=== PATIENT | female | born 1955 | race American Indian/Alaskan Native ===

== ENCOUNTER 2017-03-29 10:43 | Emergency (ER) | payer BC, MEDICAID, OTHER ==
--- NOTE | 2017-03-29 10:46 | EDM.PDOC ---
ED HPI GENERAL MEDICAL PROBLEM - General Chief Complaint: Abdominal Pain Stated Complaint: NOT FEELIN WELL, PAIN IN STOMACH Time Seen by Provider: 03/29/17 10:46 Source of Information: Reports: Patient, Old Records, RN, RN Notes Reviewed History Limitations: Reports: No Limitations - History of Present Illness INITIAL COMMENTS - FREE TEXT/NARRATIVE: Arrives by POV with c/o upper abdominal pain on/off for 3 to 4 days, but much worse today. Yesterday pt developed nausea and by evening vomited a few times, and continues to have nausea and vomiting today. Denies fever, chills, diarrhea , or urinary Sx's. Pt states her stool has been very hard and her last normal BM was at least 4 days ago. Today she strained to have a BM and could only pass a few hard ralph. Onset: Gradual Duration: Getting Worse Location: Reports: Abdomen Quality: Reports: Ache, Other (cramping) Severity: Severe Improves with: Reports: None Worsens with: Reports: None Context: Denies: Activity, Exercise, Lifting, Sick Contact, Trauma Associated Symptoms: Reports: No Other Symptoms Right Abdominal Pain Score (Numeric/FACES): 9 - Related Data Allergies Allergy/AdvReac Type Severity Reaction Status Date / Time codeine Allergy Nausea Verified 03/29/17 10:47 Home Meds: Home Meds Propranolol [Inderal LA 24 Hr] 60 mg PO DAILY 03/17/14 [History] Simvastatin [Zocor] 20 mg PO BEDTIME 03/17/14 [History] Tylenol 650 mg PO Q4H PRN 03/17/14 [History] Past Medical History Cardiovascular History: Reports: CAD, High Cholesterol, Stents Gastrointestinal History: Reports: Cholelithiasis (constipation) Neurological History: Reports: Migraines - Past Surgical History Cardiovascular Surgical History: Reports: Coronary Artery Stent GI Surgical History: Reports: Cholecystectomy Social & Family History - Family History Family Medical History: Noncontributory - Tobacco Use Smoking Status *Q: Never Smoker Years of Tobacco use: 20 Second Hand Smoke Exposure: No - Alcohol Use Days Per Week of Alcohol Use: 0 - Recreational Drug Use Recreational Drug Use: No - Living Situation & Occupation Living situation: Reports: Occupation: Employed ED ROS GENERAL - Review of Systems Review Of Systems: ROS reveals no pertinent complaints other than HPI. ED EXAM, GI/ABD - Physical Exam Exam: See Below Exam Limited By: No Limitations General Appearance: Alert, WD/WN, No Apparent Distress Eyes: Bilateral: Normal Appearance, EOMI Throat/Mouth: Normal Inspection, Normal Lips, Normal Teeth, Normal Gums, Normal Oropharynx, Normal Voice, No Airway Compromise Head: Atraumatic Neck: Normal Inspection, Supple, Non-Tender, Full Range of Motion Respiratory/Chest: No Respiratory Distress, Lungs Clear, Normal Breath Sounds, No Accessory Muscle Use, Chest Non-Tender Cardiovascular: Normal Peripheral Pulses, Regular Rate, Rhythm, No Edema, No Gallop, No JVD, No Murmur, No Rub GI/Abdominal: Normal Bowel Sounds, Soft, No Distention, No Abnormal Bruit, Pelvis Stable, Tenderness (generalized upper abdominal tenderness, worse at RUQ) . No: Guarding, Rebound, Rigidity (Female) Exam: Deferred Rectal (Female) Exam: Deferred Back Exam: Normal Inspection, Full Range of Motion. No: CVA Tenderness (L), CVA Tenderness (R) Extremities: Normal Inspection Neurological: Alert, Oriented, CN II-XII Intact, Normal Cognition, Normal Gait, No Motor/Sensory Deficits Psychiatric: Normal Affect, Normal Mood Skin Exam: Warm, Dry, Intact, Normal Color, No Rash EKG INTERPRETATION EKG Date: 03/29/17 Time: 10:58 Rhythm: other (SR) Rate (beats/min): 82 [place]: normal P-wave: present QRS: other (LVH. Abnormal R wave progression, early transition V2.) ST-T: normal QT: normal Comparison: NA - no prior EKG Course - Vital Signs Last Recorded V/S: Last Vital Signs Temp 36.5 C 03/29/17 10:48 Pulse 82 03/29/17 11:52 Resp 18 03/29/17 11:52 BP 113/58 L 03/29/17 11:52 Pulse Ox 95 03/29/17 11:52 - Orders/Labs/Meds Orders: Active Orders 24 hr Category Date Time Status EKG 12 Lead [EKG Documentation Completion] [RC] STAT Care 03/29/17 11:06 Active Enema [RC] ASDIRECTED Care 03/29/17 11:59 Active Peripheral IV Care [RC] . DIRECTED Care 03/29/17 11:06 Active UA W/MICROSCOPIC [URIN] Stat Lab 03/29/17 11:06 Uncollected Sodium Chloride 0.9% [Saline Flush] Med 03/29/17 11:06 Active 10 ml FLUSH ASDIRECTED PRN Peripheral IV Insertion Adult [OM.PC] Stat Oth 03/29/17 11:06 Ordered Medication Orders Sodium Chloride (Saline Flush) 10 ml FLUSH ASDIRECTED PRN PRN Reason: Keep Vein Open Last Admin: 03/29/17 11:11 Dose: 10 ml Labs: Laboratory Tests 03/29/17 03/29/17 Range/Units 11:10 11:10 WBC 10.6 H (5.0-10.0) 10^3/uL RBC 5.22 (4.2-5.4) 10^6/uL Hgb 14.6 (12.0-16.0) g/dL Hct 43.5 (37.0-47.0) % MCV 83.3 (80-100) fL MCH 28.0 (27.0-34.0) pg MCHC 33.6 (33.0-35.0) g/dL Plt Count 371 (150-450) 10^3/uL Neut % (Auto) 77.4 H (42.2-75.2) % Lymph % (Auto) 16.8 L (20.5-50.1) % [place] % (Auto) 5.2 (2-8) % Eos % (Auto) 0.4 L (1.0-3.0) % Baso % (Auto) 0.2 (0.0-1.0) % Sodium 139 (135-145) mmol/L Potassium 4.0 (3.6-5.0) mmol/L Chloride 100 L (101-111) mmol/L Carbon Dioxide 26.0 (21.0-31.0) mmol/L Anion Gap 17.0 BUN 12 (7-18) mg/dL Creatinine 0.7 (0.6-1.3) mg/dL Est Cr Clr Drug Dosing 65.90 mL/min Estimated GFR (MDRD) > 60 BUN/Creatinine Ratio 17.14 Glucose 131 H (74-105) mg/dL Calcium 9.8 (8.4-10.2) mg/dl Total Bilirubin 0.8 (0.2-1.0) mg/dL AST 23 (10-42) IU/L ALT 16 (10-60) IU/L Alkaline Phosphatase 84 (42-121) IU/L Troponin I < 0.02 (0.00-0.02) ng/ml Total Protein 8.2 (6.7-8.2) g/dl Albumin 4.5 (3.2-5.5) g/dl Globulin 3.7 Albumin/Globulin Ratio 1.22 Amylase 30 (28-100) U/L Lipase 37 (22-51) U/L Meds: Medications Generic Name Dose Route Start Last Admin Trade Name Freq PRN Reason Stop Dose Admin Sodium Chloride 10 ml 03/29/17 11:06 03/29/17 11:11 Saline Flush FLUSH 10 ml ASDIRECTED PRN Administration Keep Vein Open Discontinued Medications Generic Name Dose Route Start Last Admin Trade Name Freq PRN Reason Stop Dose Admin Bisacodyl 10 mg 03/29/17 11:56 03/29/17 12:03 Dulcolax RECTAL 03/29/17 11:57 10 mg ONETIME ONE Administration Hydromorphone HCl 1 mg 03/29/17 11:06 03/29/17 11:14 Dilaudid IVPUSH 03/29/17 11:07 1 mg ONETIME ONE Administration Sodium Chloride 1,000 mls @ 999 mls/hr 03/29/17 11:06 03/29/17 11:14 Normal Saline IV 03/29/17 12:06 999 mls/hr .BOLUS ONE Administration Magnesium Citrate 296 ml 03/29/17 12:59 Citrate Of Magnesia PO 03/29/17 13:00 ONETIME ONE Ondansetron HCl 4 mg 03/29/17 11:06 03/29/17 11:14 Zofran IV 03/29/17 11:07 4 mg ONETIME ONE Administration - Radiology Interpretation Free Text/Narrative:: Abd. Xray: large stool burden, constipation. nonobstructive bowel gas pattern, see Rad. report. - Re-Assessments/Exams Free Text/Narrative Re-Assessment/Exam: 03/29/17 13:05 I explained the exam findings, results of all diagnostic tests, working diagnosis, and any potential or additionally considered diagnoses, treatment/ disposition plan, self/home care instructions, rational for the diagnosis/ treatment plan/disposition plan, anticipated course of illness, and follow up instructions to the pt and/or pts family or guardian. The pt and/or pts family or guardian acknowledges understanding of the above explanation(s), and of the signs and symptoms which should prompt the return of the pt to the ER should those or any other concerning symptoms develop. Departure - Departure Time of Disposition: 13:05 Disposition: Home, Self-Care 01 Condition: good Clinical Impression: Constipation Qualifiers: Constipation type: unspecified constipation type Qualified Code(s): K59.00 - Constipation, unspecified - Discharge Information Instructions: Constipation, Adult, [id number] Forms: ED Department Discharge Additional Instructions: Rx: Zofran 4mg Rx: Lactulose syrup Follow up in clinic if not improving in 1 to 2 days. Return to ER if worse at any time. - My Orders Last 24 Hours: My Active Orders 03/29/17 11:06 EKG 12 Lead [EKG Documentation Completion] [RC] STAT Peripheral IV Care [RC] . DIRECTED UA W/MICROSCOPIC [URIN] Stat Sodium Chloride 0.9% [Saline Flush] 10 ml FLUSH ASDIRECTED PRN Peripheral IV Insertion Adult [OM.PC] Stat 03/29/17 11:59 Enema [RC] ASDIRECTED - Assessment/Plan Last 24 Hours: My Active Orders 03/29/17 11:06 EKG 12 Lead [EKG Documentation Completion] [RC] STAT Peripheral IV Care [RC] . DIRECTED UA W/MICROSCOPIC [URIN] Stat Sodium Chloride 0.9% [Saline Flush] 10 ml FLUSH ASDIRECTED PRN Peripheral IV Insertion Adult [OM.PC] Stat 03/29/17 11:59 Enema [RC] ASDIRECTED
[2017-03-29] MEDS ORDERED: Sodium Chloride 0.9% 1,000 ML IV ONE (11:06)
[2017-03-29] MEDS ORDERED: Sodium Chloride 0.9% 10 ML Syringe FLUSH PRN (11:06)
[2017-03-29] MEDS ORDERED: HYDROmorphone 1 MG/ML Syringe IVPUSH ONE (11:06)
[2017-03-29] MEDS ORDERED: Ondansetron 4 MG/2 ML SDV IV ONE (11:06)
[2017-03-29 11:42] LABS: CHLORIDE,CL 100 mmol/L (101-111); SODIUM,NA 139 mmol/L (135-145)
--- NOTE | 2017-03-29 11:50 | CR ---
CLINICAL HISTORY: 61-year-old female with upper abdominal pain, vomiting and constipation. INTERPRETATION: Flat and upright of the abdomen confirms large volume of stool in the ascending righ t colon (rectum, sigmoid, and left colon clear). Small mass with mottled calcification right pelvis that probably represents uterine fibroid (teratom a a differential consideration). Surgical clips gallbladder fossa right upper quadrant. No other foreign bodies and no sign of abdomi nal soft tissue mass, mechanical bowel obstruction or free subdiaphragmatic air. Lung bases clear. A rthritis lumbar spine.
[2017-03-29 11:52] VITALS: BP 113/58
[2017-03-29] MEDS ORDERED: Bisacodyl 10 MG Supp RECTAL ONE (11:56)
[2017-03-29] MEDS ORDERED: Magnesium Citrate Solution 296 ML Bottle PO ONE (12:59)
--- NOTE | 2017-03-31 06:59 | EKG ---
03/29/2017- BOGDAN ROSALES - EKG done 61-year-old female, showing sinus rhythm, heart rate of 82 beats per minute. No acute ST wave changes. Normal intervals. [facility] /[id number]
== END 2017-03-29 13:23 | disposition home or self-care (01) ==
LOC: DL.ED 10:43
DX: K59.00 Constipation, unspecified (principal); I25.10 Atherosclerotic heart disease of native coronary artery without angina pectoris; E78.00 Pure hypercholesterolemia, unspecified; G43.909 Migraine, unspecified, not intractable, without status migrainosus; Z90.49 Acquired absence of other specified parts of digestive tract; Z88.5 Allergy status to narcotic agent; Z79.899 Other long term (current) drug therapy; Z95.5 Presence of coronary angioplasty implant and graft
CPT/HCPCS: 36415; 74020; 80053; 82150; 83690; 84484; 85025; 93005; 96361; 96374; 96375; 99284; A9270; J1170; J2405; J7030; J7050

== ENCOUNTER 2017-03-30 19:44 | Emergency (ER) | payer MEDICAID ==
[2017-03-30 20:22] VITALS: BP 151/116
[2017-03-30] MEDS ORDERED: Sodium Chloride 0.9% 1,000 ML IV ONE (21:15)
[2017-03-30] MEDS ORDERED: Ondansetron 4 MG/2 ML SDV IV ONE (21:15)
--- NOTE | 2017-03-30 21:24 | EDM.PDOC ---
ED HPI GENERAL MEDICAL PROBLEM - General Chief Complaint: Abdominal Pain Stated Complaint: ABD PAIN Time Seen by Provider: 03/30/17 21:10 Source of Information: Reports: Patient History Limitations: Reports: No Limitations - History of Present Illness INITIAL COMMENTS - FREE TEXT/NARRATIVE: This 61 yo female patient reports to the ED with right upper quadrant abdominal pain radiating to her right back. The patient was seen in the ED yesterday for similar symptoms, diagnosed with constipation and placed on medications. The patient reports she has taken the medications as prescribed, but has not had a large bowel movement. Onset: Today Onset Date: 03/30/17 Onset Time: 17:00 Duration: Constant, Getting Worse Location: Reports: Abdomen (RUQ) Quality: Reports: Ache, Sharp Severity: Severe Improves with: Reports: None Worsens with: Reports: None Context: Reports: Other Associated Symptoms: Reports: No Other Symptoms Right Upper Abdomen Pain Score (Numeric/FACES): 9 - Related Data Allergies Allergy/AdvReac Type Severity Reaction Status Date / Time codeine Allergy Nausea Verified 03/30/17 20:10 Home Meds: Home Meds Propranolol [Inderal LA 24 Hr] 60 mg PO DAILY 03/17/14 [History] Simvastatin [Zocor] 20 mg PO BEDTIME 03/17/14 [History] Tylenol 650 mg PO Q4H PRN 03/17/14 [History] Past Medical History Cardiovascular History: Reports: CAD, High Cholesterol, Stents Gastrointestinal History: Reports: Cholelithiasis Neurological History: Reports: Migraines Endocrine/Metabolic History: Reports: Hyperthyroidism - Past Surgical History Cardiovascular Surgical History: Reports: Coronary Artery Stent GI Surgical History: Reports: Cholecystectomy Social & Family History - Family History Family Medical History: Noncontributory Endocrine/Metabolic: Reports: Diabetes, type II Oncologic: Reports: Other (See Below) Other Oncologic Family History: unknown - Tobacco Use Smoking Status *Q: Former Smoker Years of Tobacco use: 20 Used Tobacco, but Quit: Yes Month Tobacco Last Used: Second Hand Smoke Exposure: No - Caffeine Use Caffeine Use: Reports: Soda - Alcohol Use Days Per Week of Alcohol Use: 0 - Recreational Drug Use Recreational Drug Use: No - Living Situation & Occupation Living situation: Reports: Occupation: Employed ED ROS GENERAL - Review of Systems Review Of Systems: ROS reveals no pertinent complaints other than HPI. ED EXAM, GI/ABD - Physical Exam Exam: See Below Exam Limited By: No Limitations General Appearance: Alert, Moderate Distress, Obese Eyes: Bilateral: Normal Appearance, EOMI Ears: Normal External Exam, Normal Canal, Hearing Grossly Normal, Normal TMs Nose: Normal Inspection, Normal Mucosa, No Blood Throat/Mouth: Normal Inspection, Normal Lips, Normal Teeth, Normal Gums, Normal Oropharynx, Normal Voice, No Airway Compromise Head: Atraumatic, Normocephalic Neck: Normal Inspection, Supple, Non-Tender, Full Range of Motion Respiratory/Chest: No Respiratory Distress, Lungs Clear, Normal Breath Sounds, No Accessory Muscle Use, Chest Non-Tender Cardiovascular: Normal Peripheral Pulses, Regular Rate, Rhythm, No Edema, No Gallop, No JVD, No Rub, Systolic Murmur GI/Abdominal: Hypoactive Bowel Sounds, Tenderness (RUQ) (Female) Exam: Deferred Rectal (Female) Exam: Deferred Back Exam: Normal Inspection, Full Range of Motion, NT Neurological: Alert, Oriented, CN II-XII Intact, Normal Cognition, Normal Gait, Normal Reflexes, No Motor/Sensory Deficits Psychiatric: Normal Affect, Normal Mood Skin Exam: Warm, Dry, Intact, Normal Color, No Rash Lymphatic: No Adenopathy Course - Vital Signs Last Recorded V/S: Last Vital Signs Temp 37.2 C 03/30/17 20:14 Pulse 64 03/30/17 20:14 Resp 18 03/30/17 20:14 BP 151/116 H 03/30/17 20:14 Pulse Ox 98 03/30/17 20:14 - Orders/Labs/Meds Labs: Laboratory Tests 03/30/17 03/30/17 03/30/17 Range/Units 21:25 21:31 21:31 WBC 13.0 H (5.0-10.0) 10^3/uL RBC 4.78 (4.2-5.4) 10^6/uL Hgb 13.4 (12.0-16.0) g/dL Hct 41.3 (37.0-47.0) % MCV 86.4 (80-100) fL MCH 28.0 (27.0-34.0) pg MCHC 32.4 L (33.0-35.0) g/dL Plt Count 364 (150-450) 10^3/uL Neut % (Auto) 73.7 (42.2-75.2) % Lymph % (Auto) 19.4 L (20.5-50.1) % [place] % (Auto) 5.9 (2-8) % Eos % (Auto) 0.8 L (1.0-3.0) % Baso % (Auto) 0.2 (0.0-1.0) % Sodium 141 (135-145) mmol/L Potassium 4.0 (3.6-5.0) mmol/L Chloride 100 L (101-111) mmol/L Carbon Dioxide 34.0 H (21.0-31.0) mmol/L Anion Gap 11.0 BUN 11 (7-18) mg/dL Creatinine 0.8 (0.6-1.3) mg/dL Est Cr Clr Drug Dosing TNP Estimated GFR (MDRD) > 60 BUN/Creatinine Ratio 13.75 Glucose 105 (74-105) mg/dL Calcium 9.8 (8.4-10.2) mg/dl Total Bilirubin 0.6 (0.2-1.0) mg/dL AST 22 (10-42) IU/L ALT 16 (10-60) IU/L Alkaline Phosphatase 85 (42-121) IU/L Ammonia (11-35) umol/L Total Protein 7.7 (6.7-8.2) g/dl Albumin 4.4 (3.2-5.5) g/dl Globulin 3.3 Albumin/Globulin Ratio 1.33 Amylase 28 (28-100) U/L Lipase 37 (22-51) U/L Urine Color Yellow (YELLOW) Urine Appearance Slightly cloudy (CLEAR) Urine pH 8.0 (5.0-9.0) Ur Specific [place] 1.015 (1.005-1.030) Urine Protein Negative (NEGATIVE) Urine Glucose (UA) Negative (NEGATIVE) Urine Ketones Negative (NEGATIVE) Urine Occult Blood Negative (NEGATIVE) Urine Nitrite Negative (NEGATIVE) Urine Bilirubin Negative (NEGATIVE) Urine Urobilinogen 0.2 (0.2-1.0) mg/dL Ur Leukocyte Esterase Negative (NEGATIVE) Urine RBC 0-5 /HPF Urine WBC 0-5 (0-5/HPF) /HPF Ur Epithelial Cells Few /HPF Amorphous Sediment Few (0/HPF) /HPF Urine Bacteria Rare (0-FEW/HPF) /HPF Urine Mucus Rare /LPF 03/30/17 Range/Units 21:31 WBC (5.0-10.0) 10^3/uL RBC (4.2-5.4) 10^6/uL Hgb (12.0-16.0) g/dL Hct (37.0-47.0) % MCV (80-100) fL MCH (27.0-34.0) pg MCHC (33.0-35.0) g/dL Plt Count (150-450) 10^3/uL Neut % (Auto) (42.2-75.2) % Lymph % (Auto) (20.5-50.1) % [place] % (Auto) (2-8) % Eos % (Auto) (1.0-3.0) % Baso % (Auto) (0.0-1.0) % Sodium (135-145) mmol/L Potassium (3.6-5.0) mmol/L Chloride (101-111) mmol/L Carbon Dioxide (21.0-31.0) mmol/L Anion Gap BUN (7-18) mg/dL Creatinine (0.6-1.3) mg/dL Est Cr Clr Drug Dosing Estimated GFR (MDRD) BUN/Creatinine Ratio Glucose (74-105) mg/dL Calcium (8.4-10.2) mg/dl Total Bilirubin (0.2-1.0) mg/dL AST (10-42) IU/L ALT (10-60) IU/L Alkaline Phosphatase (42-121) IU/L Ammonia < 9 L (11-35) umol/L Total Protein (6.7-8.2) g/dl Albumin (3.2-5.5) g/dl Globulin Albumin/Globulin Ratio Amylase (28-100) U/L Lipase (22-51) U/L Urine Color (YELLOW) Urine Appearance (CLEAR) Urine pH (5.0-9.0) Ur Specific [place] (1.005-1.030) Urine Protein (NEGATIVE) Urine Glucose (UA) (NEGATIVE) Urine Ketones (NEGATIVE) Urine Occult Blood (NEGATIVE) Urine Nitrite (NEGATIVE) Urine Bilirubin (NEGATIVE) Urine Urobilinogen (0.2-1.0) mg/dL Ur Leukocyte Esterase (NEGATIVE) Urine RBC /HPF Urine WBC (0-5/HPF) /HPF Ur Epithelial Cells /HPF Amorphous Sediment (0/HPF) /HPF Urine Bacteria (0-FEW/HPF) /HPF Urine Mucus /LPF Meds: Medications Discontinued Medications Generic Name Dose Route Start Last Admin Trade Name [place] PRN Reason Stop Dose Admin Hydromorphone HCl 0.5 mg 03/30/17 21:56 03/30/17 22:45 Dilaudid IVPUSH 03/30/17 21:57 0.5 mg ONETIME ONE Administration Sodium Chloride 1,000 mls @ 999 mls/hr 03/30/17 21:15 03/30/17 21:51 Normal Saline IV 03/30/17 22:15 999 mls/hr .BOLUS ONE Administration Iopamidol 75 ml 03/30/17 22:51 [id number] (61%) IVPUSH 03/30/17 22:52 ONETIME ONE Ondansetron HCl 4 mg 03/30/17 21:15 03/30/17 21:51 Zofran IV 03/30/17 21:16 4 mg ONETIME ONE Administration Departure - Departure Time of Disposition: 00:22 Disposition: Home, Self-Care 01 Condition: fair Clinical Impression: Abdominal gas pain Abdominal pain Qualifiers: Abdominal location: right upper quadrant Qualified Code(s): R10.11 - Right upper quadrant pain - Discharge Information Instructions: Abdominal Pain, Adult, [id number] Forms: ED Department Discharge Care Plan Goals: The patient was advised of the examination, lab and CT results during the visit. The patient was encouraged to continue to take the medications as prescribed by the provider yesterday. If the patient has any additional symptoms or concerns, the patient should follow-up with her primary care facility or return to the emergency department.
[2017-03-30] MEDS ORDERED: HYDROmorphone 1 MG/ML Syringe IVPUSH ONE (21:56)
[2017-03-30 21:59] LABS: CHLORIDE,CL 100 mmol/L (101-111); SODIUM,NA 141 mmol/L (135-145)
[2017-03-30] MEDS ORDERED: Iopamidol 612 MG/ML 75 ML Bottle IVPUSH ONE (22:51)
== END 2017-03-31 00:30 | disposition home or self-care (01) ==
LOC: DL.ED 19:44
DX: R14.1 Gas pain (principal); R10.11 Right upper quadrant pain; I25.10 Atherosclerotic heart disease of native coronary artery without angina pectoris; E78.00 Pure hypercholesterolemia, unspecified; G43.909 Migraine, unspecified, not intractable, without status migrainosus; E05.90 Thyrotoxicosis, unspecified without thyrotoxic crisis or storm; Z95.5 Presence of coronary angioplasty implant and graft; Z79.899 Other long term (current) drug therapy; Z88.6 Allergy status to analgesic agent; Z90.49 Acquired absence of other specified parts of digestive tract; Z87.891 Personal history of nicotine dependence
CPT/HCPCS: 36415; 74176; 80053; 81001; 82140; 82150; 83690; 85025; 96361; 96374; 96375; 99284; J1170; J2405; J7030

== ENCOUNTER 2017-03-31 10:39 | Observation (INO) | payer MEDICAID, OTHER ==
--- NOTE | 2017-03-31 10:48 | EDM.PDOC ---
ED HPI GENERAL MEDICAL PROBLEM - General Chief Complaint: Abdominal Pain Stated Complaint: BY AMBULANCE Time Seen by Provider: 03/31/17 10:48 Source of Information: Reports: Patient, RN, RN Notes Reviewed History Limitations: Reports: No Limitations - History of Present Illness INITIAL COMMENTS - FREE TEXT/NARRATIVE: Arrives by ambulance with c/o severe RUQ abdominal pain. Pt seen here last night by Oleg VELOZ, and earlier this week by myself with the same complaint. She denies fever, chills, or urinary Sx's. She has not had a BM in approx. 5 days. C/O nausea and vomiting, and not able to keep anything down for 2 days. Duration: Recurring, Waxing/Waning Location: Reports: Abdomen Right Lower Abdomen Pain Score (Numeric/FACES): 10 - Related Data Allergies Allergy/AdvReac Type Severity Reaction Status Date / Time codeine Allergy Nausea Verified 03/31/17 10:53 Home Meds: Home Meds Propranolol [Inderal LA 24 Hr] 60 mg PO DAILY 03/17/14 [History] Simvastatin [Zocor] 20 mg PO BEDTIME 03/17/14 [History] Tylenol 650 mg PO Q4H PRN 03/17/14 [History] Past Medical History Cardiovascular History: Reports: CAD, High Cholesterol, Stents Gastrointestinal History: Reports: Cholelithiasis Neurological History: Reports: Migraines Endocrine/Metabolic History: Reports: Hyperthyroidism - Past Surgical History Cardiovascular Surgical History: Reports: Coronary Artery Stent GI Surgical History: Reports: Cholecystectomy Social & Family History - Family History Family Medical History: Noncontributory Endocrine/Metabolic: Reports: Diabetes, type II Oncologic: Reports: Other (See Below) Other Oncologic Family History: unknown - Tobacco Use Smoking Status *Q: Former Smoker Years of Tobacco use: 20 Used Tobacco, but Quit: Yes Month Tobacco Last Used: Second Hand Smoke Exposure: No - Caffeine Use Caffeine Use: Reports: Soda - Alcohol Use Days Per Week of Alcohol Use: 0 - Recreational Drug Use Recreational Drug Use: No - Living Situation & Occupation Living situation: Reports: Occupation: Employed ED ROS GENERAL - Review of Systems Review Of Systems: ROS reveals no pertinent complaints other than HPI. ED EXAM, GI/ABD - Physical Exam Exam: See Below Exam Limited By: No Limitations General Appearance: Alert, WD/WN, Anxious, Mild Distress (with RUQ abd. pain) Eyes: Bilateral: Normal Appearance, EOMI Ears: Normal External Exam Nose: Normal Inspection Throat/Mouth: Normal Inspection, Normal Lips, Normal Teeth, Normal Gums, Normal Oropharynx, Normal Voice, No Airway Compromise, Other (dry oral membranes) Head: Atraumatic, Normocephalic Neck: Normal Inspection, Supple, Non-Tender, Full Range of Motion Respiratory/Chest: No Respiratory Distress, Lungs Clear, Normal Breath Sounds, No Accessory Muscle Use, Chest Non-Tender Cardiovascular: Normal Peripheral Pulses, Regular Rate, Rhythm, No Edema, No Gallop, No JVD, No Murmur, No Rub GI/Abdominal: Soft, No Distention, No Abnormal Bruit, Hypoactive Bowel Sounds, Tenderness (RUQ). No: Guarding, Rebound, Rigidity (Female) Exam: Deferred Rectal (Female) Exam: Deferred Back Exam: Normal Inspection Extremities: Normal Inspection Neurological: Alert, Oriented, CN II-XII Intact, Normal Cognition, No Motor/ Sensory Deficits Psychiatric: Anxious Skin Exam: Warm, Dry, Intact, Normal Color, No Rash EKG INTERPRETATION EKG Date: 03/31/17 Time: 11:41 Rhythm: other (SR) Rate (beats/min): 71 [place]: normal P-wave: present QRS: other (LVH) ST-T: normal QT: normal Comparison: no change Course - Vital Signs Last Recorded V/S: Last Vital Signs Temp 36.6 C 03/31/17 10:53 Pulse 67 03/31/17 12:34 Resp 24 H 03/31/17 12:34 BP 155/66 H 03/31/17 12:34 Pulse Ox 96 03/31/17 12:34 - Orders/Labs/Meds Orders: Active Orders 24 hr Category Date Time Status EKG 12 Lead [EKG Documentation Completion] [RC] STAT Care 03/31/17 11:16 Active Peripheral IV Care [RC] . DIRECTED Care 03/31/17 11:17 Active Sodium Chloride 0.9% [Saline Flush] Med 03/31/17 11:17 Active 10 ml FLUSH ASDIRECTED PRN Peripheral IV Insertion Adult [OM.PC] Stat Oth 03/31/17 11:16 Ordered Medication Orders Sodium Chloride (Saline Flush) 10 ml FLUSH ASDIRECTED PRN PRN Reason: Keep Vein Open Last Admin: 03/31/17 11:28 Dose: 10 ml Labs: Laboratory Tests 03/31/17 03/31/17 03/31/17 Range/Units 11:19 11:25 11:25 WBC 13.8 H (5.0-10.0) 10^3/uL RBC 4.78 (4.2-5.4) 10^6/uL Hgb 13.4 (12.0-16.0) g/dL Hct 41.2 (37.0-47.0) % MCV 86.2 (80-100) fL MCH 28.0 (27.0-34.0) pg MCHC 32.5 L (33.0-35.0) g/dL Plt Count 350 (150-450) 10^3/uL Neut % (Auto) 78.1 H (42.2-75.2) % Lymph % (Auto) 16.4 L (20.5-50.1) % Snyder % (Auto) 5.1 (2-8) % Eos % (Auto) 0.3 L (1.0-3.0) % Baso % (Auto) 0.1 (0.0-1.0) % D-Dimer, Quantitative (0-400) ng/mL Sodium 143 (135-145) mmol/L Potassium 3.8 (3.6-5.0) mmol/L Chloride 103 (101-111) mmol/L Carbon Dioxide 30.0 (21.0-31.0) mmol/L Anion Gap 13.8 BUN 8 (7-18) mg/dL Creatinine 0.8 (0.6-1.3) mg/dL Est Cr Clr Drug Dosing TNP Estimated GFR (MDRD) > 60 BUN/Creatinine Ratio 10.00 Glucose 119 H (74-105) mg/dL Calcium 9.2 (8.4-10.2) mg/dl Total Bilirubin 0.6 (0.2-1.0) mg/dL AST 22 (10-42) IU/L ALT 15 (10-60) IU/L Alkaline Phosphatase 83 (42-121) IU/L Lactate Dehydrogenase 132 (91-180) IU/L Troponin I 0.02 (0.00-0.02) ng/ml C-Reactive Protein (0.0-1.3) mg/dL Total Protein 7.4 (6.7-8.2) g/dl Albumin 4.2 (3.2-5.5) g/dl Globulin 3.2 Albumin/Globulin Ratio 1.31 Amylase 28 (28-100) U/L Lipase 34 (22-51) U/L Urine Color Yellow (YELLOW) Urine Appearance Clear (CLEAR) Urine pH 8.5 (5.0-9.0) Ur Specific [place] 1.015 (1.005-1.030) Urine Protein Negative (NEGATIVE) Urine Glucose (UA) Negative (NEGATIVE) Urine Ketones Negative (NEGATIVE) Urine Occult Blood Negative (NEGATIVE) Urine Nitrite Negative (NEGATIVE) Urine Bilirubin Negative (NEGATIVE) Urine Urobilinogen 0.2 (0.2-1.0) mg/dL Ur Leukocyte Esterase Negative (NEGATIVE) Urine RBC Not seen /HPF Urine WBC Not seen (0-5/HPF) /HPF Ur Epithelial Cells Rare /HPF Urine Bacteria Not seen (0-FEW/HPF) /HPF Urine Mucus Rare /LPF 03/31/17 03/31/17 Range/Units 11:25 11:25 WBC (5.0-10.0) 10^3/uL RBC (4.2-5.4) 10^6/uL Hgb (12.0-16.0) g/dL Hct (37.0-47.0) % MCV (80-100) fL MCH (27.0-34.0) pg MCHC (33.0-35.0) g/dL Plt Count (150-450) 10^3/uL Neut % (Auto) (42.2-75.2) % Lymph % (Auto) (20.5-50.1) % Snyder % (Auto) (2-8) % Eos % (Auto) (1.0-3.0) % Baso % (Auto) (0.0-1.0) % D-Dimer, Quantitative 134 (0-400) ng/mL Sodium (135-145) mmol/L Potassium (3.6-5.0) mmol/L Chloride (101-111) mmol/L Carbon Dioxide (21.0-31.0) mmol/L Anion Gap BUN (7-18) mg/dL Creatinine (0.6-1.3) mg/dL Est Cr Clr Drug Dosing Estimated GFR (MDRD) BUN/Creatinine Ratio Glucose (74-105) mg/dL Calcium (8.4-10.2) mg/dl Total Bilirubin (0.2-1.0) mg/dL AST (10-42) IU/L ALT (10-60) IU/L Alkaline Phosphatase (42-121) IU/L Lactate Dehydrogenase (91-180) IU/L Troponin I (0.00-0.02) ng/ml C-Reactive Protein < 0.5 (0.0-1.3) mg/dL Total Protein (6.7-8.2) g/dl Albumin (3.2-5.5) g/dl Globulin Albumin/Globulin Ratio Amylase (28-100) U/L Lipase (22-51) U/L Urine Color (YELLOW) Urine Appearance (CLEAR) Urine pH (5.0-9.0) Ur Specific [place] (1.005-1.030) Urine Protein (NEGATIVE) Urine Glucose (UA) (NEGATIVE) Urine Ketones (NEGATIVE) Urine Occult Blood (NEGATIVE) Urine Nitrite (NEGATIVE) Urine Bilirubin (NEGATIVE) Urine Urobilinogen (0.2-1.0) mg/dL Ur Leukocyte Esterase (NEGATIVE) Urine RBC /HPF Urine WBC (0-5/HPF) /HPF Ur Epithelial Cells /HPF Urine Bacteria (0-FEW/HPF) /HPF Urine Mucus /LPF Meds: Medications Generic Name Dose Route Start Last Admin Trade Name Klever PRN Reason Stop Dose Admin Sodium Chloride 10 ml 03/31/17 11:17 03/31/17 11:28 Saline Flush FLUSH 10 ml ASDIRECTED PRN Administration Keep Vein Open Discontinued Medications Generic Name Dose Route Start Last Admin Trade Name Klever PRN Reason Stop Dose Admin Diphenhydramine HCl 12.5 mg 03/31/17 11:20 03/31/17 11:36 Benadryl IVPUSH 03/31/17 11:21 12.5 mg ONETIME ONE Administration Sodium Chloride 1,000 mls @ 999 mls/hr 03/31/17 11:19 03/31/17 11:36 Normal Saline IV 03/31/17 12:19 999 mls/hr .BOLUS ONE Administration Lorazepam 0.5 mg 03/31/17 11:20 03/31/17 11:36 Ativan IVPUSH 03/31/17 11:21 0.5 mg ONETIME ONE Administration Metoclopramide HCl 10 mg 03/31/17 11:20 03/31/17 11:36 Reglan IVPUSH 03/31/17 11:21 10 mg ONETIME ONE Administration - Radiology Interpretation Free Text/Narrative:: ABD. Xray: no acute finding per Rad. report. Departure - Departure Time of Disposition: 12:54 (admit to Dr. Espinoza) Disposition: Refer to Observation Condition: undetermined Clinical Impression: Abdominal pain Qualifiers: Abdominal location: right upper quadrant Qualified Code(s): R10.11 - Right upper quadrant pain Constipation Qualifiers: Constipation type: unspecified constipation type Qualified Code(s): K59.00 - Constipation, unspecified Vomiting Qualifiers: Vomiting type: unspecified Vomiting Intractability: unspecified Nausea presence : with nausea Qualified Code(s): R11.2 - Nausea with vomiting, unspecified - Discharge Information Forms: ED Department Discharge - My Orders Last 24 Hours: My Active Orders 03/31/17 11:16 EKG 12 Lead [EKG Documentation Completion] [RC] STAT Peripheral IV Insertion Adult [OM.PC] Stat 03/31/17 11:17 Peripheral IV Care [RC] . DIRECTED Sodium Chloride 0.9% [Saline Flush] 10 ml FLUSH ASDIRECTED PRN - Assessment/Plan Last 24 Hours: My Active Orders 03/31/17 11:16 EKG 12 Lead [EKG Documentation Completion] [RC] STAT Peripheral IV Insertion Adult [OM.PC] Stat 03/31/17 11:17 Peripheral IV Care [RC] . DIRECTED Sodium Chloride 0.9% [Saline Flush] 10 ml FLUSH ASDIRECTED PRN
[2017-03-31] MEDS ORDERED: Sodium Chloride 0.9% 10 ML Syringe FLUSH PRN (11:17)
[2017-03-31] MEDS ORDERED: Sodium Chloride 0.9% 1,000 ML IV ONE (11:19)
[2017-03-31] MEDS ORDERED: diphenhydrAMINE 50 MG/ML SDV IVPUSH ONE (11:20)
[2017-03-31] MEDS ORDERED: Metoclopramide 10 MG/2 ML SDV IVPUSH ONE (11:20)
[2017-03-31] MEDS ORDERED: LORazepam 2 MG/ML Syringe IVPUSH ONE (11:20)
[2017-03-31 11:53] LABS: CHLORIDE,CL 103 mmol/L (101-111); SODIUM,NA 143 mmol/L (135-145)
--- NOTE | 2017-03-31 12:23 | CR ---
CLINICAL HISTORY: 61-year-old female with right upper quadrant pain and pressure ("no bowel movement several days") noted to have "calcified uterine leiomyoma" but otherwise unremarkable study emergen cy CT scan abdomen 30 March 2017, i.e., last night. INTERPRETATION: Surgical clips gallbladder fossa right upper quadrant and large abdominal soft tissu e pannus. No sign of abdominal soft tissue mass or mechanical bowel obstruction (calcifications right of the p wing consistent with uterine myoma). Lung bases clear. No free subdiaphragmatic air.
[2017-03-31] MEDS ORDERED: Ondansetron 4 MG/2 ML SDV IV ONE (13:04)
[2017-03-31] MEDS ORDERED: HYDROmorphone 1 MG/ML Syringe IVPUSH ONE (13:04)
[2017-03-31] MEDS ORDERED: Acetaminophen 325 MG Tab PO PRN (14:26)
--- NOTE | 2017-03-31 14:54 | PCM.HP ---
H&P History of Present Illness - General Date of Service: 03/31/17 Admit Problem/Dx: Admission Diagnosis/Problem Admission Diagnosis/Problem Abdominal pain Source of Information: Patient, Family History Limitations: Reports: No Limitations - History of Present Illness Initial Comments - Free Text/Narative: patient is a 59-year-old female was admitted because of abdominal pain. Actually today it was her third visit to the emergency room because of the same complaint. patient has been having right-sided abdominal pain, occasionally radiating towards the back, she rates the pain is 9/10 in intensity. Constant. First visit emergency room around 2 days ago, x-rays showed some stools on the ascending colon, she was given enema and stool softener and family members report that there was no significant results from it. Seen again yesterday for the same problem CAT scan showed no significant findings, appendix normal, no signs of obstruction, surgical clips in the gallbladder area noted. And again, was seen by her daughter to be in pain and really weak from it, hence ambulance was called and brought to the emergency room and because of the recurrent ER visits, was advised admission. Other family members report that actually this started last . Patient has had episodes of vomiting. She denies prior episodes of this in the past. No sick contacts in the household. No chest pain, shortness of breath, fever however was noted to be cold in the emergency room. No bloody stools no new medications started. Right Lower Abdomen Pain Score (Numeric/FACES): 10 Right Upper Abdomen Pain Score (Numeric/FACES): 7 - Related Data Allergies/Adverse Reactions: Allergies Allergy/AdvReac Type Severity Reaction Status Date / Time codeine Allergy Nausea Verified 03/31/17 14:42 Home Medications: Home Meds Simvastatin [Zocor] 20 mg PO BEDTIME 03/17/14 [History] Aspirin [Ecotrin] 325 mg PO DAILY 03/31/17 [History] Famotidine 20 mg PO DAILY PRN 03/31/17 [History] Lactulose 30 ml PO DAILY PRN 03/31/17 [History] Lisinopril 1.5 tab PO DAILY 03/31/17 [History] Metoprolol Tartrate 50 mg PO DAILY 03/31/17 [History] Ondansetron [IJD: Ondansetron ODT] 4 mg PO Q6H PRN 03/31/17 [History] Simethicone [Gas Relief] 125 mg PO QID PRN 03/31/17 [History] Vit C/E/Zn/Coppr/Lutein/Zeaxan [Preservision Areds 2 Softgel] 1 cap PO BID 03/31 [History] Vitamin E 1,000 units PO BID 03/31/17 [History] diphenhydrAMINE HCl [Benadryl Allergy] 25 mg PO DAILY PRN 03/31/17 [History] Past Medical History Cardiovascular History: Reports: CAD, High Cholesterol, Stents Gastrointestinal History: Reports: Cholelithiasis Neurological History: Reports: Migraines Endocrine/Metabolic History: Reports: Hyperthyroidism - Past Surgical History Cardiovascular Surgical History: Reports: Coronary Artery Stent GI Surgical History: Reports: Cholecystectomy Social & Family History - Family History Family Medical History: Noncontributory Endocrine/Metabolic: Reports: Diabetes, type II Oncologic: Reports: Other (See Below) Other Oncologic Family History: unknown - Tobacco Use Smoking Status *Q: Never Smoker Years of Tobacco use: 20 Used Tobacco, but Quit: Yes Month Tobacco Last Used: Second Hand Smoke Exposure: No - Caffeine Use Caffeine Use: Reports: None - Alcohol Use Days Per Week of Alcohol Use: 0 - Recreational Drug Use Recreational Drug Use: No - Living Situation & Occupation Living situation: Reports: Occupation: Employed H&P Review of Systems - Review of Systems: Review Of Systems: See Below General: Reports: No Symptoms Pulmonary: Reports: No Symptoms Cardiovascular: Reports: No Symptoms Gastrointestinal: Reports: Abdominal Pain, Constipation Psychiatric: Reports: No Symptoms Neurological: Reports: No Symptoms Exam - Exam Exam: See Below - Vital Signs Vital Signs: Last Vital Signs Temp 35.9 C 03/31/17 14:12 Pulse 63 03/31/17 14:12 Resp 20 03/31/17 14:12 BP 134/61 03/31/17 14:12 Pulse Ox 93 L 03/31/17 14:12 Weight: 62.686 kg - Exam General: Alert, Oriented Lungs: Clear to Auscultation, Normal Respiratory Effort Cardiovascular: Regular Rate, Regular Rhythm Abdomen: Soft, Other (direct tenderness on the right lower and right upper with no rebound tenderness; no muscle guarding) - Patient Data Result Diagrams: 03/31/17 11:25 03/31/17 11:25 *Q Meaningful Use (ADM) - VTE *Q VTE Criteria *Q: - Stroke *Q Stroke Criteria *Q: - AMI *Q AMI Criteria *Q: - Problem List (1) Abdominal pain SNOMED Code(s): 60109543 ICD Code: R10.9 - UNSPECIFIED ABDOMINAL PAIN Status: Acute Current Visit : Yes Qualifiers: Abdominal location: right upper quadrant Qualified Code(s): R10.11 - Right upper quadrant pain (2) Vomiting SNOMED Code(s): 391642723 ICD Code: R11.10 - VOMITING, UNSPECIFIED Status: Acute Current Visit: Yes Qualifiers: Vomiting type: unspecified Vomiting Intractability: unspecified Nausea presence: with nausea Qualified Code(s): R11.2 - Nausea with vomiting, unspecified Problem List Initiated/Reviewed/Updated: Yes Orders Last 24hrs: Active Orders 24 hr Category Date Time Status Patient Status [ADT] Routine ADT 03/31/17 14:27 Active Antiembolic Devices [RC] PER UNIT ROUTINE Care 03/31/17 14:28 Active Cooling Warming Measures [RC] ASDIRECTED Care 03/31/17 14:32 Active Oxygen Therapy [RC] PRN Care 03/31/17 14:27 Active Up With Assistance [RC] ASDIRECTED Care 03/31/17 14:27 Active VTE/DVT Education [RC] PER UNIT ROUTINE Care 03/31/17 14:27 Active Vital Signs [RC] Q4H Care 03/31/17 14:27 Active Nothing per Oral Now Diet [DIET] Diet 03/31/17 Dinner Active H PYLORI STOOL ANTIGEN [MREF] Routine Lab 03/31/17 14:30 Uncollected Acetaminophen [Tylenol] Med 03/31/17 14:26 Active 650 mg PO Q4H PRN Lactulose [Cephulac] Med 03/31/17 21:00 Active 20 gm PO TID Propranolol [Inderal LA] Med 04/01/17 09:00 Active 60 mg PO DAILY Simvastatin [Zocor] Med 03/31/17 21:00 Active 20 mg PO BEDTIME Sodium Chloride 0.9% [Normal Saline] 1,000 ml Med 03/31/17 14:30 Active IV ASDIRECTED Antiembolic Hose [OM.PC] Per Unit Routine Oth 03/31/17 14:28 Ordered Heat Therapy [OM.PC] Routine Oth 03/31/17 14:32 Ordered Medication Orders Acetaminophen (Tylenol) 650 mg PO Q4H PRN PRN Reason: Pain Sodium Chloride (Normal Saline) 1,000 mls @ 125 mls/hr IV ASDIRECTED IVY Lactulose (Cephulac) 20 gm PO TID IVY Propranolol HCl (Inderal La) 60 mg PO DAILY IVY Simvastatin (Zocor) 20 mg PO BEDTIME IVY Sodium Chloride (Saline Flush) 10 ml FLUSH ASDIRECTED PRN PRN Reason: Keep Vein Open Last Admin: 03/31/17 11:28 Dose: 10 ml Assessment/Plan Comment:: abdominal pain - Unclear etiology, infectious unlikely, CAT scan not showing any focus of infection; CRP is normal; no signs of obstruction; aminotransferase is normal, lipase normal; no rash noted on the affected area as well; for now considering constipation - lactulose t.i.d., monitor for result - Heating pad to be applied to the affected area 3 times a day as well Nausea and vomiting, unclear etiology: can be associated from the underlying abdominal pain - n.p.o.; start IV fluids normal saline 125 mL per hour - Reglan IV 3 times a day - IV protonix - patient has a documented history of GERD, send stool for H. pylori History of coronary artery disease, chest pain free - EKG didn't show any acute signs and troponin is normal review of records patient has history of multinodular goiter - Check TSH DVT prophylaxis - Lovenox subcutaneously
[2017-03-31] MEDS ORDERED: Pantoprazole 40 MG Tab.CR PO ONE (15:08)
[2017-03-31] MEDS: Sodium Chloride 0.9% 1,000 ML IV SCH ×2 (15:12→23:01)
[2017-03-31] MEDS ORDERED: Ketorolac 30 MG/ML SDV IVPUSH PRN (16:42)
[2017-03-31] MEDS ORDERED: Famotidine 20 MG Tab PO PRN (17:01)
[2017-03-31] MEDS: Metoclopramide 10 MG/2 ML SDV IVPUSH SCH ×2 (17:22→23:52)
[2017-03-31] MEDS ORDERED: Simvastatin 10 MG Tab PO SCH (21:00)
[2017-03-31] MEDS: Lactulose Soln 10 GM/15 ML 30 ML UD Cup PO SCH (21:10)
[2017-03-31] MEDS: Vitamin E (dl-alpha-tocopherol acetate) 400 Unit Cap PO SCH (21:11)
[2017-03-31] MEDS: Lutein/Minerals/Vit A,C & E Tab PO SCH (21:11)
[2017-04-01] MEDS ORDERED: Pantoprazole 40 MG Tab.CR PO SCH (06:00)
[2017-04-01] MEDS: Metoclopramide 10 MG/2 ML SDV IVPUSH SCH (06:09)
[2017-04-01] MEDS: Sodium Chloride 0.9% 1,000 ML IV SCH (07:24)
[2017-04-01] MEDS ORDERED: Lisinopril 20 MG Tab PO SCH (09:00)
[2017-04-01] MEDS ORDERED: Metoprolol Tartrate 50 MG Tab PO SCH (09:00)
[2017-04-01] MEDS ORDERED: Enoxaparin 40 MG/0.4 ML Syringe SUBCUT SCH (09:00)
[2017-04-01] MEDS ORDERED: Propranolol 60 MG Cap.ER PO SCH (09:00)
[2017-04-01] MEDS ORDERED: Aspirin 325 MG Tab.EC PO SCH (09:00)
[2017-04-01] MEDS: Lactulose Soln 10 GM/15 ML 30 ML UD Cup PO SCH (09:15)
[2017-04-01] MEDS: Lutein/Minerals/Vit A,C & E Tab PO SCH (09:16)
[2017-04-01] MEDS: Vitamin E (dl-alpha-tocopherol acetate) 400 Unit Cap PO SCH (09:22)
[2017-04-01 09:40] VITALS: BP 128/58
--- NOTE | 2017-04-01 10:53 | PCM.DCSUM1 ---
Discharge Summary - Hospital Course Free Text/Narrative:: the patient is a 61-year-old lady who presented with the recurrent abdomen pain , constipation, nausea vomiting. She had multiple ER visits. previous workup including CT of the abdomen was non-revealing. On admission she was started on lactulose. She had a good bowel movement with that. The abdominal pain has resolved. She will be discharged home in a stable condition. She will followup with her primary care physician. Return to the ER for further abdomen pain. - Discharge Data Discharge Date: 04/01/17 Discharge Disposition: Home, Self-Care 01 Condition: Good - Patient Instructions Diet: Usual Diet as Tolerated Activity: As Tolerated - Discharge Plan Home Medications: Home Meds Simvastatin [Zocor] 20 mg PO BEDTIME 03/17/14 [History] Aspirin [Ecotrin] 325 mg PO DAILY 03/31/17 [History] Famotidine 20 mg PO DAILY PRN 03/31/17 [History] Lactulose 30 ml PO DAILY PRN 03/31/17 [History] Lisinopril 1.5 tab PO DAILY 03/31/17 [History] Metoprolol Tartrate 50 mg PO DAILY 03/31/17 [History] Ondansetron [IJD: Ondansetron ODT] 4 mg PO Q6H PRN 03/31/17 [History] Simethicone [Gas Relief] 125 mg PO QID PRN 03/31/17 [History] Vit C/E/Zn/Coppr/Lutein/Zeaxan [Preservision Areds 2 Softgel] 1 cap PO BID 03/31 [History] Vitamin E 1,000 units PO BID 03/31/17 [History] diphenhydrAMINE HCl [Benadryl Allergy] 25 mg PO DAILY PRN 03/31/17 [History] Patient Handouts: Nausea and Vomiting, Adult, [id number], Abdominal Pain, Adult, [id number] Referrals: PCP,None [Primary Care Provider] - (in 3-4 days) - Discharge Summary/Plan Comment DC Time >30 min.: No - General Info Functional Status: Reports: other (pain resolved, had good bowel movement) - Review of Systems General: Denies: Fever Pulmonary: Denies: shortness of breath Cardiovascular: Denies: Chest Pain Gastrointestinal: Denies: Abdominal pain, Constipation, Nausea, Vomiting Neurological: Denies: Confusion, Dizziness - Patient Data Vitals - Most Recent: Last Vital Signs Temp 36.4 C 04/01/17 07:19 Pulse 64 04/01/17 09:16 Resp 16 04/01/17 07:19 BP 128/58 L 04/01/17 09:16 Pulse Ox 96 04/01/17 07:19 Weight - Most Recent: 62.686 kg I&O - Last 24 hours: Intake & Output 03/31/17 04/01/17 04/01/17 22:59 06:59 14:59 Intake Total 968 300 995 Output Total 450 Balance 518 300 995 Lab Results - Last 24 hrs: Laboratory Results - last 24 hr 03/31/17 03/31/17 Range/Units 15:20 15:20 Lactic Acid 0.7 (0.5-2.2) mmol/L TSH, Ultra Sensitive 0.04 L (0.35-7.0) uIu/mL Med Orders - Current: Current Medications Acetaminophen (Tylenol) 650 mg PO Q4H PRN PRN Reason: Pain Aspirin (Ecotrin) 325 mg PO DAILY [facility] Last Admin: 04/01/17 09:15 Dose: 325 mg Enoxaparin Sodium (Lovenox) 40 mg SUBCUT DAILY [facility] Last Admin: 04/01/17 09:30 Dose: 40 mg Famotidine (Pepcid) 20 mg PO DAILY PRN PRN Reason: Heartburn Sodium Chloride (Normal Saline) 1,000 mls @ 125 mls/hr IV ASDIRECTED [facility] Last Admin: 04/01/17 07:24 Dose: 125 mls/hr Ketorolac Tromethamine (Toradol) 30 mg IVPUSH Q8H PRN PRN Reason: Pain Stop: 04/05/17 16:42 Last Admin: 03/31/17 20:14 Dose: 30 mg Lactulose (Cephulac) 20 gm PO TID [facility] Last Admin: 04/01/17 09:15 Dose: 20 gm Lisinopril (Prinivil) 30 mg PO DAILY [facility] Last Admin: 04/01/17 09:24 Dose: 30 mg Metoclopramide HCl (Reglan) 10 mg IVPUSH Q6H [facility] Last Admin: 04/01/17 06:09 Dose: Not Given Metoprolol Tartrate (Lopressor) 50 mg PO DAILY [facility] Last Admin: 04/01/17 09:16 Dose: 50 mg Multivitamins/Minerals (I-Shan) 1 each PO BID [facility] Last Admin: 04/01/17 09:16 Dose: 1 each Pantoprazole Sodium (Protonix) 40 mg PO ACBREAKFAST [facility] Last Admin: 04/01/17 05:48 Dose: 40 mg Simvastatin (Zocor) 20 mg PO BEDTIME [facility] Last Admin: 03/31/17 21:11 Dose: 20 mg Sodium Chloride (Saline Flush) 10 ml FLUSH ASDIRECTED PRN PRN Reason: Keep Vein Open Last Admin: 03/31/17 11:28 Dose: 10 ml Vitamin E (Vitamin E) 800 units PO BID [facility] Last Admin: 04/01/17 09:22 Dose: 800 units Discontinued Medications Diphenhydramine HCl (Benadryl) 12.5 mg IVPUSH ONETIME ONE Stop: 03/31/17 11:21 Last Admin: 03/31/17 11:36 Dose: 12.5 mg Hydromorphone HCl (Dilaudid) 1 mg IVPUSH ONETIME ONE Stop: 03/31/17 13:05 Last Admin: 03/31/17 13:19 Dose: 1 mg Sodium Chloride (Normal Saline) 1,000 mls @ 999 mls/hr IV .BOLUS ONE Stop: 03/31/17 12:19 Last Admin: 03/31/17 11:36 Dose: 999 mls/hr Lorazepam (Ativan) 0.5 mg IVPUSH ONETIME ONE Stop: 03/31/17 11:21 Last Admin: 03/31/17 11:36 Dose: 0.5 mg Metoclopramide HCl (Reglan) 10 mg IVPUSH ONETIME ONE Stop: 03/31/17 11:21 Last Admin: 03/31/17 11:36 Dose: 10 mg Ondansetron HCl (Zofran) 4 mg IV ONETIME ONE Stop: 03/31/17 13:05 Last Admin: 03/31/17 13:19 Dose: 4 mg Pantoprazole Sodium (Protonix) 40 mg PO ONETIME ONE Stop: 03/31/17 15:09 Last Admin: 03/31/17 17:20 Dose: 40 mg Propranolol HCl (Inderal La) 60 mg PO DAILY IVY - Exam General: Reports: alert, oriented Neck: Reports: supple Lungs: Reports: Clear to auscultation, Normal respiratory effort Cardiovascular: Reports: Regular Rate Abdomen: Reports: bowel sounds present, soft, no tenderness, no distension Extremities: Reports: no edema *Q Meaningful Use (DIS) - VTE *Q VTE Criteria *Q: - Stroke *Q Stroke Criteria *Q: - AMI *Q AMI Criteria *Q:
--- NOTE | 2017-05-20 11:50 | EKG ---
03/31/2017- BOGDAN ROSALES - EKG done on a 61-year-old female, showing sinus rhythm, heart rate of 71 beats per minute. Normal intervals. No acute ST wave changes. [facility] /[id number]
== END 2017-04-01 11:30 | disposition home or self-care (01) ==
LOC: DL.ED 10:39 → DL.MS 13:52
PROVIDERS: ADMIT Internal Medicine; ATTEND Internal Medicine
DX: R10.11 Right upper quadrant pain (principal); R11.2 Nausea with vomiting, unspecified; E78.00 Pure hypercholesterolemia, unspecified; I25.10 Atherosclerotic heart disease of native coronary artery without angina pectoris; E05.90 Thyrotoxicosis, unspecified without thyrotoxic crisis or storm; Z95.5 Presence of coronary angioplasty implant and graft; Z88.8 Allergy status to other drugs, medicaments and biological substances; Z79.899 Other long term (current) drug therapy; Z90.49 Acquired absence of other specified parts of digestive tract; Z87.891 Personal history of nicotine dependence; Z79.82 Long term (current) use of aspirin; R14.1 Gas pain; G43.909 Migraine, unspecified, not intractable, without status migrainosus; Z88.6 Allergy status to analgesic agent
CPT/HCPCS: 36415; 74020; 74176; 80053; 81001; 82140; 82150; 83605; 83615; 83690; 84439; 84443; 84481; 84484; 85025; 85379; 86140; 87338; 93005; 96361; 96372; 96374; 96375; 96376; 99284; 99285; A9270; G0378; J1170; J1200; J1650; J1885; J2060; J2405; J2765; J7030; J7050

== ENCOUNTER 2017-05-27 05:25 | Day surgery (SDC) | payer MEDICAID, OTHER ==
[~2017-05-27 05:25] MED LIST: Dextrose 5%-0.45% NaCl 1,000 ML IV SCH; Sodium Chloride 0.9% 10 ML Syringe FLUSH PRN
[2017-05-27] MEDS ORDERED: fentaNYL 100 MCG/2 ML SDV ONE (06:08)
[2017-05-27] MEDS ORDERED: Midazolam 1 MG/ML 2 ML SDV ONE (06:08)
[2017-05-27] MEDS ORDERED: Dextrose 5%-0.45% NaCl 1,000 ML IV SCH (06:15)
[2017-05-27] MEDS ORDERED: fentaNYL 100 MCG/2 ML SDV IV ONE ×3 (06:26→16:19)
[2017-05-27] MEDS ORDERED: Midazolam 1 MG/ML 2 ML SDV IV ONE ×4 (06:27→16:19)
[2017-05-27 08:42] VITALS: BP 103/59
--- NOTE | 2017-05-27 11:07 | OR ---
DATE: 05/27/2017 PROCEDURE: Esophagogastroduodenoscopy and multiple pinch biopsies. INSTRUMENT USED: GIF-H180 Olympus video panendoscope. PREMEDICATIONS: No oral topical anesthesia used. Fentanyl 100 mcg intravenous, Versed 2 mg intravenous. Nasal 2 L O2 cannula. 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 INDICATION: The patient with persistent abdominal pain, episodes of vomiting, abdominal bloating, dyspepsia as well as weight loss, unexplained and not responsive to medical measures, on long-term aspirin. Esophagogastroduodenoscopy is performed for detection of any active erosive lesions, Robison esophagus and/or malignancy also under consideration, H. pylori status to be determined, endoscopic hemostasis therapy if needed. DESCRIPTION OF PROCEDURE: The scope was passed with ease. Adequate visualization of the esophagus was made from proximal to distal areas. No upper esophageal lesions identified. No distal esophageal stricture. No uphill or downhill esophageal varices. No Nancy-Galaviz tear. No evidence of erosive esophagitis by [place] criteria. No esophageal polyp or tumor mass identified. Z-line was seen at around 39 cm distal to the oral verge, configuration consistent with grade 1 by ZAP classification. No proximal gastric varices noted. Gastric fundus examination by retroflexion showed no polypoid lesions. No gastric ulcer, malignant mass, or vascular ectasia identified. There was considerable deformity of the pylorus along with stricture and less than 1 cm sized ulcer without bleeding from it. Because of the stricture, the tip of the scope could not be passed to visualize the duodenum. Multiple pinch biopsies were taken from the gastric antrum and proximal body and sent for PyloriTek test for H. pylori, and if negative in an hour, the tissue is to be sent for histopathology. No gastric vascular ectasia, polyp, or tumor mass identified. No bleeding was noted from any of the visualized areas at the completion of examination. Photographs were taken of the pyloric channel, gastric antrum, fundus as well as distal esophagus. IMPRESSION: 1. Pyloric channel ulcer. 2. Pyloric stricture. The patient tolerated the procedure well. [facility] /[id number]
--- NOTE | 2017-05-28 08:33 | LETTER ---
05/27/2017 Joanna Bartholomew NP [facility] [address] [place] [address] RE: ELLE LITTLEJOHN ANGIE : 1955 Dear Ms. Bartholomew: Ms. Elle Littlejohn had esophagogastroduodenoscopy done this morning and she tolerated the procedure well. I herewith send a copy of the endoscopy note and photographs for your review. She is put on omeprazole 20 mg p.o. daily. Thank you. Sincerely, [facility] /[id number]
== END 2017-05-27 08:44 | disposition home or self-care (01) ==
LOC: DL.ENDO 05:25
PROVIDERS: ATTEND Internal Medicine Gastroenterology
DX: K29.50 Unspecified chronic gastritis without bleeding (principal); K31.1 Adult hypertrophic pyloric stenosis; K25.9 Gastric ulcer, unspecified as acute or chronic, without hemorrhage or perforation; I25.10 Atherosclerotic heart disease of native coronary artery without angina pectoris; I10 Essential (primary) hypertension; E78.5 Hyperlipidemia, unspecified; E55.9 Vitamin D deficiency, unspecified; K21.9 Gastro-esophageal reflux disease without esophagitis; E04.2 Nontoxic multinodular goiter; Z88.5 Allergy status to narcotic agent; Z79.82 Long term (current) use of aspirin; Z79.899 Other long term (current) drug therapy; Z95.5 Presence of coronary angioplasty implant and graft; Z98.890 Other specified postprocedural states
CPT/HCPCS: 43239; 87077; J2250; J3010; J7042

== ENCOUNTER 2017-05-28 06:12 | Day surgery (SDC) | payer MEDICAID, OTHER ==
[2017-05-28] MEDS ORDERED: fentaNYL 100 MCG/2 ML SDV ONE (06:20)
[2017-05-28] MEDS ORDERED: Midazolam 1 MG/ML 2 ML SDV ONE (06:20)
[2017-05-28] MEDS ORDERED: Dextrose 5%-0.45% NaCl 1,000 ML IV SCH (06:50)
[2017-05-28] MEDS ORDERED: fentaNYL 100 MCG/2 ML SDV IV ONE ×3 (07:21→08:51)
[2017-05-28] MEDS ORDERED: Midazolam 1 MG/ML 2 ML SDV IV ONE ×6 (07:22→08:51)
--- NOTE | 2017-05-28 08:20 | OR ---
DATE: 05/28/2017 PROCEDURES: Total colonoscopy and cold snare polypectomy. INSTRUMENT USED: PCF-H180 [place] Olympus video colonoscope. PREMEDICATIONS: Fentanyl 100 mcg intravenous, Versed 3 mg intravenous, nasal O2 cannula. The procedure was done under pulse oximetry, BP recording, and general labor. INDICATION: The patient with persistent abdominal pain and chronic constipation, more pronounced recently and not responsive to medical measures. Colonoscopic examination is done for detection of any polypoid lesions and removal. Endoscopic hemostasis therapy if needed. DESCRIPTION OF PROCEDURE: Initial rectal exam was unremarkable. Rigid anoscopy was normal. The colonoscope was passed with ease up to the ileocecal area. Photographs were taken of the normal-appearing cecum, identified by landmarks of appendiceal orifice and double-bulged ileocecal folds. No bleeding was noted from any of the visualized areas at the commencement of the examination. No stricture. No vascular ectasia. No large isolated ulcerations seen. No evidence of diffuse inflammatory bowel disease in the form of friability, contact bleeding, or ulcerations. In the mid ascending colon, 5 mm sized benign-appearing polyp was noted. Cold snare polypectomy was done. The tissue was retrieved and sent for histopathology. Probing the proximal sides of folds and flexures using adequate distention and clearing of the stool material, withdrawal of the scope was made. Cecum to rectum time over 6 minutes. No bleeding was noted from any of the visualized areas at the completion of examination. IMPRESSION: Ascending colon polyp. The patient tolerated the procedure well. [facility] /[id number]
--- NOTE | 2017-05-28 08:39 | LETTER ---
05/28/2017 Joanna Bartholomew NP [facility] [address] [place] [address] RE: ELLE LITTLEJOHN : 1955 Dear Puma: Ms. Elle Littlejohn had colonoscopic examination done this morning and she tolerated the procedure well. I herewith send a copy of the endoscopy note and photographs for your review. Thank you. Sincerely, [facility] /[id number]
[2017-05-28 11:07] VITALS: BP 126/52
== END 2017-05-28 09:44 | disposition home or self-care (01) ==
LOC: DL.ENDO 06:12
PROVIDERS: ATTEND Internal Medicine Gastroenterology
DX: D12.2 Benign neoplasm of ascending colon (principal); E04.2 Nontoxic multinodular goiter; I25.10 Atherosclerotic heart disease of native coronary artery without angina pectoris; E78.5 Hyperlipidemia, unspecified; I10 Essential (primary) hypertension; E55.9 Vitamin D deficiency, unspecified; K21.9 Gastro-esophageal reflux disease without esophagitis; Z95.5 Presence of coronary angioplasty implant and graft; Z90.49 Acquired absence of other specified parts of digestive tract; Z98.890 Other specified postprocedural states; Z79.82 Long term (current) use of aspirin; Z79.899 Other long term (current) drug therapy; Z88.5 Allergy status to narcotic agent
CPT/HCPCS: 45385; J2250; J3010; J7042

== ENCOUNTER 2020-06-10 16:35 | Emergency (ER) | payer MEDICAID, OTHER ==
[2020-06-10 17:01] VITALS: BP 126/57; PULSE 82
[2020-06-10 17:33] LABS: ANION GAP 17.4 mEq/L (7-13)
[2020-06-10] MEDS ORDERED: Ondansetron 4 MG Tab.DIS PO ONE (17:39)
--- NOTE | 2020-06-10 17:58 | EDM.PDOC ---
Scribed by Verito Wynn 06/10/20 [id number] for Oleg Adrian PA ED HPI GENERAL MEDICAL PROBLEM - General Chief Complaint: Gastrointestinal Problem Stated Complaint: FLU SICK??? Time Seen by Provider: 06/10/20 16:50 Source of Information: Reports: Patient, RN, RN Notes Reviewed History Limitations: Reports: No Limitations - History of Present Illness INITIAL COMMENTS - FREE TEXT/NARRATIVE: Patient presents to ER she doesn't feel good. She was in [place]. She developed generalized weakness, nauseated, diarrhea and hot flashes. She was tested for COVID today, but will not get results for 72 hours. Onset: Gradual Duration: Constant Location: Reports: Generalized Severity: Moderate Improves with: Reports: None Worsens with: Reports: None Associated Symptoms: Reports: No Other Symptoms - Related Data Allergies Allergy/AdvReac Type Severity Reaction Status Date / Time codeine Allergy Nausea Verified 06/10/20 17:00 Home Meds: Home Meds Simvastatin [Zocor] 20 mg PO BEDTIME 03/17/14 [History] Aspirin [Ecotrin] 325 mg PO DAILY 03/31/17 [History] Famotidine 20 mg PO DAILY PRN 03/31/17 [History] Lisinopril 1.5 tab PO DAILY 03/31/17 [History] Metoprolol Tartrate 50 mg PO DAILY 03/31/17 [History] Simethicone [Gas Relief] 125 mg PO QID PRN 03/31/17 [History] Vit C/E/Zn/Coppr/Lutein/Zeaxan [Preservision Areds 2 Softgel] 1 cap PO BID 03/31/17 [History] Vitamin E 1,000 units PO BID 03/31/17 [History] Cholecalciferol (Vitamin D3) [Vitamin D3] 2 tab PO DAILY 05/05/17 [History] Past Medical History HEENT History: Reports: Macular Degeneration Cardiovascular History: Reports: CAD, High Cholesterol, Stents, Other (See Below) Other Cardiovascular History: HYPERLIPIDEMIA Respiratory History: Reports: None Gastrointestinal History: Reports: Cholelithiasis, GERD, Other (See Below) Other Gastrointestinal History: LACTOSE INTOLERANCE Genitourinary History: Reports: None BOTTOM MAN History: Reports: Musculoskeletal History: Reports: None Neurological History: Reports: Migraines Psychiatric History: Reports: Anxiety, Depression Endocrine/Metabolic History: Reports: Hyperthyroidism, Multinodular Thyroid, Vitamin D Deficiency, Other (See Below) Other Endocrine/Metabolic History: MULTINODULAR GOITER Hematologic History: Reports: None Immunologic History: Reports: None Oncologic (Cancer) History: Reports: None Dermatologic History: Reports: None - Infectious Disease History Infectious Disease History: Reports: Chicken Pox, Mumps - Past Surgical History Head Surgeries/Procedures: Reports: None HEENT Surgical History: Reports: Tonsillectomy Cardiovascular Surgical History: Reports: Coronary Artery Stent Respiratory Surgical History: Reports: None GI Surgical History: Reports: Cholecystectomy, EGD Female Surgical History: Reports: Section Neurological Surgical History: Reports: None Musculoskeletal Surgical History: Reports: None Oncologic Surgical History: Reports: None Social & Family History - Family History Family Medical History: Noncontributory Endocrine/Metabolic: Reports: Diabetes, type II Oncologic: Reports: Other (See Below) Other Oncologic Family History: unknown - Caffeine Use Caffeine Use: Reports: None - Living Situation & Occupation Living situation: Reports: Occupation: Employed ED ROS GENERAL - Review of Systems Review Of Systems: Comprehensive ROS is negative, except as noted in HPI. ED EXAM, GENERAL - Physical Exam Exam: See Below Exam Limited By: No Limitations General Appearance: Alert, WD/WN, No Apparent Distress Eye Exam: Bilateral Eye: EOMI, Normal Inspection, PERRL Ears: Normal External Exam, Normal Canal, Hearing Grossly Normal, Normal TMs Nose: Normal Inspection, Normal Mucosa, No Blood Throat/Mouth: Normal Inspection, Normal Lips, Normal Teeth, Normal Gums, Normal Oropharynx, Normal Voice, No Airway Compromise Head: Atraumatic, Normocephalic Neck: Normal Inspection, Supple, Non-Tender, Full Range of Motion Respiratory/Chest: No Respiratory Distress, Lungs Clear, Normal Breath Sounds, No Accessory Muscle Use, Chest Non-Tender Cardiovascular: Systolic Murmur (Grade II) GI/Abdominal: Normal Bowel Sounds, Soft, Non-Tender, No Organomegaly, No Distention, No Abnormal Bruit, No Mass (Female) Exam: Deferred Rectal (Female) Exam: Deferred Back Exam: Normal Inspection, Full Range of Motion, NT Extremities: Normal Inspection, Normal Range of Motion, Non-Tender, Normal Capillary Refill, No Pedal Edema Neurological: Alert, Oriented, CN II-XII Intact, Normal Cognition, Normal Gait, Normal Reflexes, No Motor/Sensory Deficits Psychiatric: Normal Affect, Normal Mood Skin Exam: Warm, Dry, Intact, Normal Color, No Rash Lymphatic: No Adenopathy Course - Vital Signs Last Recorded V/S: Last Vital Signs Temp 36.5 C 06/10/20 16:52 Pulse 82 06/10/20 16:52 Resp 16 06/10/20 16:52 BP 126/57 L 06/10/20 16:52 Pulse Ox 95 06/10/20 16:52 - Orders/Labs/Meds Labs: Laboratory Tests 06/10/20 06/10/20 Range/Units 17:05 17:05 WBC 8.3 (5.0-10.0) 10^3/uL RBC 4.41 (4.2-5.4) 10^6/uL Hgb 12.5 (12.0-16.0) g/dL Hct 37.3 (37.0-47.0) % MCV 84.6 (80-100) fL MCH 28.3 (27.0-34.0) pg MCHC 33.5 (33.0-35.0) g/dL Plt Count 235 D (150-450) 10^3/uL Neut % (Auto) 79.0 H (42.2-75.2) % Lymph % (Auto) 13.5 L (20.5-50.1) % [place] % (Auto) 7.3 (2-8) % Eos % (Auto) 0.1 L (1.0-3.0) % Baso % (Auto) 0.1 (0.0-1.0) % Sodium 133 L (136-145) mmol/L Potassium 4.4 (3.5-5.1) mmol/L Chloride 97 L (98-107) mmol/L Carbon Dioxide 23 (21-32) mmol/L Anion Gap 17.4 H (7-13) mEq/L BUN 15 (7-18) mg/dL Creatinine 1.03 H (0.55-1.02) mg/dL Est Cr Clr Drug Dosing 42.49 mL/min Estimated GFR (MDRD) 54 BUN/Creatinine Ratio 14.6 (No establ ref range) Glucose 110 H (74-99) mg/dL Calcium 8.2 L (8.5-10.1) mg/dL Total Bilirubin 0.5 (0.2-1.0) mg/dL AST 37 (15-37) U/L ALT 36 (14-59) U/L Alkaline Phosphatase 85 (46-116) U/L Total Protein 7.3 (6.4-8.2) g/dL Albumin 3.2 L (3.4-5.0) g/dL Globulin 4.1 Albumin/Globulin Ratio 0.78 Meds: Medications Discontinued Medications Generic Name Dose Route Start Last Admin Trade Name Klever PRN Reason Stop Dose Admin Ondansetron HCl 4 mg 06/10/20 17:39 06/10/20 17:48 Zofran Odt PO 06/10/20 17:40 4 mg ONETIME ONE Administration Departure - Departure Time of Disposition: 17:43 Disposition: Home, Self-Care 01 Condition: Fair Clinical Impression: Nausea, Generalized body aches, COVID-19 virus test result unknown - Discharge Information *PRESCRIPTION DRUG MONITORING PROGRAM REVIEWED*: Not Applicable *COPY OF PRESCRIPTION DRUG MONITORING REPORT IN PATIENT SHEILA: Not Applicable Instructions: Contact Precautions, [id number], Airborne Precautions Forms: ED Department Discharge Care Plan Goals: The patient was advised of the examination and lab results during the visit. The patient was encouraged to remain socially isolating until the results are received from her COVID testing (done prior to her visit in the ED). The patient should stick to a BRAT diet (bananas, rice, applesauce and toast) with small frequent sips of fluid. The patient was given an oral dose of Zofran while in the ED. The patient was discharged with a script for Zofran (4 mg) #20 to take 1 by mouth every 6 hours as needed for nausea. If the patient has any additional symptoms or concerns, the patient should either return to the emergency department or visit her primary care facility. Sepsis Event Note (ED) - Focused Exam Vital Signs: Vital Signs Temp Pulse Resp BP Pulse Ox 06/10/20 16:52 36.5 C 82 16 126/57 L 95 I have read and agree with the documentation that has been completed regarding this visit. By signing this record, I attest that the documentation was completed in my physical presence and is an accurate record of the encounter.
== END 2020-06-10 18:04 | disposition home or self-care (01) ==
LOC: DL.ED 16:35
DX: R11.0 Nausea (principal); R52 Pain, unspecified; R19.7 Diarrhea, unspecified; I25.10 Atherosclerotic heart disease of native coronary artery without angina pectoris; E78.5 Hyperlipidemia, unspecified; K21.9 Gastro-esophageal reflux disease without esophagitis; Z88.5 Allergy status to narcotic agent; Z79.82 Long term (current) use of aspirin; Z79.899 Other long term (current) drug therapy; Z95.5 Presence of coronary angioplasty implant and graft
CPT/HCPCS: 36415; 80053; 85025; 99283; 99284; A9270

== ENCOUNTER 2021-01-29 13:30 | Emergency (ER) | payer OTHER ==
[2021-01-29 13:29] VITALS: BP 146/82; PULSE 95
[2021-01-29] MEDS ORDERED: Sodium Chloride 0.9% 10 ML Syringe FLUSH PRN (13:37)
--- NOTE | 2021-01-29 13:37 | EDM.PDOC ---
ED HPI GENERAL MEDICAL PROBLEM - General Chief Complaint: Syncope Stated Complaint: AMBULANCE Time Seen by Provider: 01/29/21 13:37 Source of Information: Reports: Patient, Old Records, RN, RN Notes Reviewed History Limitations: Reports: No Limitations - History of Present Illness INITIAL COMMENTS - FREE TEXT/NARRATIVE: Pt [place] with reort that the patient had a syncopal episode while at her [place] getting ready for her daughter's . Her granddaughter came to the [place] and there was a verbal fight. The patient feels that all of her anxiety came to a head and she went out to her car and just "passed out." Patient has no history of this and feels that it is all stress related. Patient denies hitting head and was sitting at time of the passing out. Pt feels well and back to normal at this time. Onset: Today, Sudden Duration: Resolved Prior to Arrival Location: Reports: Generalized Quality: Reports: Other (Denies pain) Severity: Mild Improves with: Reports: None Worsens with: Reports: None Associated Symptoms: Reports: No Other Symptoms - Related Data Allergies Allergy/AdvReac Type Severity Reaction Status Date / Time codeine Allergy Nausea Verified 06/10/20 17:00 Home Meds: Home Meds Simvastatin [Zocor] 20 mg PO BEDTIME 03/17/14 [History] Aspirin [Ecotrin] 325 mg PO DAILY 03/31/17 [History] Famotidine 20 mg PO DAILY PRN 03/31/17 [History] Lisinopril 1.5 tab PO DAILY 03/31/17 [History] Metoprolol Tartrate 50 mg PO DAILY 03/31/17 [History] Simethicone [Gas Relief] 125 mg PO QID PRN 03/31/17 [History] Vit C/E/Zn/Coppr/Lutein/Zeaxan [Preservision Areds 2 Softgel] 1 cap PO BID 03/31/17 [History] Vitamin E (Dl,Tocopheryl Acet) [Vitamin E] 1,000 units PO BID 03/31/17 [History] Cholecalciferol (Vitamin D3) [Vitamin D3] 2 tab PO DAILY 05/05/17 [History] Past Medical History HEENT History: Reports: Macular Degeneration Cardiovascular History: Reports: CAD, Heart Murmur, High Cholesterol, Stents, Other (See Below) Other Cardiovascular History: HYPERLIPIDEMIA Respiratory History: Reports: None Gastrointestinal History: Reports: Cholelithiasis, GERD, Other (See Below) Other Gastrointestinal History: LACTOSE INTOLERANCE Genitourinary History: Reports: None 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: Musculoskeletal History: Reports: None Neurological History: Reports: Migraines Psychiatric History: Reports: Anxiety, Depression Endocrine/Metabolic History: Reports: Hyperthyroidism, Multinodular Thyroid, Vitamin D Deficiency, Other (See Below) Other Endocrine/Metabolic History: MULTINODULAR GOITER Hematologic History: Reports: None Immunologic History: Reports: None Oncologic (Cancer) History: Reports: None Dermatologic History: Reports: None - Infectious Disease History Infectious Disease History: Reports: Chicken Pox, Mumps - Past Surgical History Head Surgeries/Procedures: Reports: None HEENT Surgical History: Reports: Tonsillectomy Cardiovascular Surgical History: Reports: Coronary Artery Stent Respiratory Surgical History: Reports: None GI Surgical History: Reports: Cholecystectomy, EGD Female Surgical History: Reports: Section Neurological Surgical History: Reports: None Musculoskeletal Surgical History: Reports: None Oncologic Surgical History: Reports: None Social & Family History - Family History Family Medical History: No Pertinent Family History Endocrine/Metabolic: Reports: Diabetes, type II Oncologic: Reports: Other (See Below) Other Oncologic Family History: unknown - Caffeine Use Caffeine Use: Reports: None - Living Situation & Occupation Living situation: Reports: Occupation: Employed ED ROS GENERAL - Review of Systems Review Of Systems: Comprehensive ROS is negative, except as noted in HPI. - Physical Exam Exam: See Below Exam Limited By: No Limitations General Appearance: Alert, WD/WN, No Apparent Distress, Anxious Eye Exam: Bilateral Eye: EOMI, Normal Inspection, PERRL Nose: Normal Inspection, Normal Mucosa, No Blood Throat/Mouth: Normal Inspection, Normal Lips, Normal Teeth, Normal Gums, Normal Oropharynx, Normal Voice, No Airway Compromise Head Exam: Atraumatic, Normocephalic Neck: Normal Inspection, Supple, Non-Tender, Full Range of Motion Respiratory/Chest: No Respiratory Distress, Lungs Clear, Normal Breath Sounds, No Accessory Muscle Use, Chest Non-Tender Cardiovascular: Regular Rate, Rhythm, No Edema, No JVD, Systolic Murmur (3/6 ANGELO) GI/Abdominal: Normal Bowel Sounds, Soft, Non-Tender, No Organomegaly, No Abnormal Bruit, Pelvis Stable Neuro Exam (Abbreviated): Alert, Oriented, CN II-XII Intact, Normal Cognition, No Motor/Sensory Deficits Back Exam: Normal Inspection Extremities: Normal Inspection, Normal Range of Motion, Non-Tender, No Pedal Edema, Normal Capillary Refill Psychiatric: Normal Affect, Anxious, Depressed Mood, Tearful (Due to acute grief) Skin Exam: Warm, Dry, Intact, Normal Color, No Rash #1 Interpretation EKG Date: 01/29/21 Time: 13:55 Rhythm: Other (SR) Rate (Beats/Min): 81 Campbell: LAD-Left Campbell Deviation P-Wave: Present QRS: Other (LVH) ST-T: Normal QT: Normal Comparison: NA - No Prior EKG Course - Vital Signs Last Recorded V/S: Last Vital Signs Temp 98.2 F 01/29/21 13:20 Pulse 95 01/29/21 13:20 Resp 18 01/29/21 13:20 BP 146/82 H 01/29/21 13:20 Pulse Ox 99 01/29/21 13:20 Orthostatic Blood Pressure [ 141/76 Standing] Orthostatic Blood Pressure [ 144/63 Sitting] Orthostatic Blood Pressure [ 139/68 Supine] - Orders/Labs/Meds Orders: Active Orders 24 hr Category Date Time Status EKG 12 Lead [EKG Documentation Completion] [RC] STAT Care 01/29/21 13:38 Active Orthostatic Vital Signs [RC] ASDIRECTED Care 01/29/21 13:37 Active Peripheral IV Care [RC] . DIRECTED Care 01/29/21 13:39 Active Sodium Chloride 0.9% [Saline Flush] Med 01/29/21 13:37 Active 10 ml FLUSH ASDIRECTED PRN Peripheral IV Insertion Adult [OM.PC] Stat Oth 01/29/21 13:38 Ordered Medication Orders Sodium Chloride (Sodium Chloride 0.9% 10 Ml Syringe) 10 ml FLUSH ASDIRECTED PRN PRN Reason: Keep Vein Open Labs: Laboratory Tests 01/29/21 01/29/21 01/29/21 Range/Units 13:53 13:53 13:53 WBC 7.1 (5.0-10.0) 10^3/uL RBC 4.75 (4.2-5.4) 10^6/uL Hgb 13.1 (12.0-16.0) g/dL Hct 40.9 (37.0-47.0) % MCV 86.1 (80-100) fL MCH 27.6 (27.0-34.0) pg MCHC 32.0 L (33.0-35.0) g/dL Plt Count 303 (150-450) 10^3/uL Neut % (Auto) 58.8 (42.2-75.2) % Lymph % (Auto) 31.1 (20.5-50.1) % [place] % (Auto) 6.1 (2-8) % Eos % (Auto) 3.3 H (1.0-3.0) % Baso % (Auto) 0.7 (0.0-1.0) % PT 10.3 (9.0-12.0) SEC INR 1.0 (0.9-1.2) APTT 25.3 (22.0-34.0) SEC Sodium 145 D (136-145) mmol/L Potassium 3.6 (3.5-5.1) mmol/L Chloride 106 (98-107) mmol/L Carbon Dioxide 26 (21-32) mmol/L Anion Gap 16.6 H (7-13) mEq/L BUN 11 (7-18) mg/dL Creatinine 0.90 (0.55-1.02) mg/dL Est Cr Clr Drug Dosing 48.63 mL/min Estimated GFR (MDRD) > 60 BUN/Creatinine Ratio 12.2 (No establ ref range) Glucose 137 H (70-99) mg/dL Calcium 8.6 (8.5-10.1) mg/dL Total Bilirubin 0.2 (0.2-1.0) mg/dL AST 24 (15-37) U/L ALT 37 (14-59) U/L Alkaline Phosphatase 119 H (46-116) U/L Troponin I < 0.017 (0.000-0.056) ng/mL Total Protein 7.3 (6.4-8.2) g/dL Albumin 3.8 (3.4-5.0) g/dL Globulin 3.5 Albumin/Globulin Ratio 1.1 Meds: Medications Generic Name Dose Route Start Last Admin Trade Name Freq PRN Reason Stop Dose Admin Sodium Chloride 10 ml 01/29/21 13:37 Sodium Chloride 0.9% 10 Ml Syringe FLUSH ASDIRECTED PRN Keep Vein Open Discontinued Medications Generic Name Dose Route Start Last Admin Trade Name Klever PRN Reason Stop Dose Admin Lorazepam 0.5 mg 01/29/21 14:10 Lorazepam 0.5 Mg Tab PO 01/29/21 14:11 ONETIME ONE - Radiology Interpretation Free Text/Narrative:: CXR: Suspicious mass-like fullness superior mediastinum (see above). AP chest otherwise unremarkable. Recommend considering follow-up PA/lateral plain CXR or, preferably CT chest exam. See rad report. Departure - Departure Time of Disposition: 15:28 Disposition: Home, Self-Care 01 Condition: Good Clinical Impression: Grief at loss of child, Acute stress reaction Syncope Qualifiers: Syncope type: unspecified Qualified Code(s): R55 - Syncope and collapse - Discharge Information *PRESCRIPTION DRUG MONITORING PROGRAM REVIEWED*: Not Applicable *COPY OF PRESCRIPTION DRUG MONITORING REPORT IN PATIENT SHEILA: Not Applicable Instructions: Managing Loss, Adult, Stress, Adult, Syncope, [id number] Forms: ED Department Discharge Additional Instructions: Rx: Lorazepam 0.5mg Follow up in clinic next week for recheck of your heart murmur. Ask your doctor to review the x-ray report from today's chest x-ray. Return to ER if worse at any time. Sepsis Event Note (ED) - Evaluation Sepsis Screening Result: No Definite Risk - Focused Exam Vital Signs: Vital Signs Temp Pulse Resp BP Pulse Ox 01/29/21 13:20 98.2 F 95 18 146/82 H 99 - My Orders Last 24 Hours: My Active Orders 01/29/21 13:37 Orthostatic Vital Signs [RC] ASDIRECTED Sodium Chloride 0.9% [Saline Flush] 10 ml FLUSH ASDIRECTED PRN 01/29/21 13:38 EKG 12 Lead [EKG Documentation Completion] [RC] STAT Peripheral IV Insertion Adult [OM.PC] Stat 01/29/21 13:39 Peripheral IV Care [RC] . DIRECTED - Assessment/Plan Last 24 Hours: My Active Orders 01/29/21 13:37 Orthostatic Vital Signs [RC] ASDIRECTED Sodium Chloride 0.9% [Saline Flush] 10 ml FLUSH ASDIRECTED PRN 01/29/21 13:38 EKG 12 Lead [EKG Documentation Completion] [RC] STAT Peripheral IV Insertion Adult [OM.PC] Stat 01/29/21 13:39 Peripheral IV Care [RC] . DIRECTED
--- NOTE | 2021-01-29 14:05 | CR ---
EXAMINATION: Chest 1V Frontal SEX: Female AGE: 65 years CLINICAL HISTORY: 65-year-old hypertensive female with SYNCOPE. Patient reported on previous CXR 17 Mar 2014 to have "no active disease; mediastinum unremarkable". Interpretation: 1. Mediastinum appears widened (AP film compared to PA films of February 2014 and August 2008. Technique?) but there also appears to be new associated tracheal deviation to the right of midline suggesting superior mediastinal mass. 2. No suspicious parenchymal lung nodule or mass lesion and no hilar lymphadenopathy. 3. No alveolar consolidation, atelectasis/collapse, or peripheral groundglass" interstitial lung densities. 4. Normal cardiac silhouette unchanged. No pulmonary vascular congestion, alveolar edema or dependent pleural effusion. 5. No pneumothorax or pneumomediastinum. No free subdiaphragmatic air. CONCLUSION: Suspicious masslike fullness superior mediastinum (see above). AP chest otherwise unremarkable. Recommend considering follow-up PA/lateral plain CXR or, preferably, CT chest exam.
[2021-01-29] MEDS ORDERED: LORazepam 0.5 MG Tab PO ONE (14:10)
[2021-01-29 14:20] LABS: ANION GAP 16.6 mEq/L (7-13); CHLORIDE,CL 106 mmol/L (98-107); SODIUM,NA 145 mmol/L (136-145)
[2021-01-29 14:25] LABS: PTT,PARTIAL THROMBOPLSTIN TIME 25.3 SEC (22.0-34.0)
== END 2021-01-29 15:56 | disposition home or self-care (01) ==
LOC: DL.ED 13:30
DX: R55 Syncope and collapse (principal); F43.0 Acute stress reaction; Z63.4 Disappearance and death of family member; I25.10 Atherosclerotic heart disease of native coronary artery without angina pectoris; E78.5 Hyperlipidemia, unspecified; K21.9 Gastro-esophageal reflux disease without esophagitis; Z79.899 Other long term (current) drug therapy; Z88.5 Allergy status to narcotic agent; Z95.5 Presence of coronary angioplasty implant and graft
CPT/HCPCS: 36415; 71045; 80053; 84484; 85025; 85610; 85730; 93005; 93010; 99284; A9270

== ENCOUNTER 2021-05-02 17:31 | Emergency (ER) | payer SELFPAY ==
[2021-05-02 18:49] VITALS: BP 129/60; PULSE 88
--- NOTE | 2021-05-02 19:09 | EDM.PDOC ---
ED HPI GENERAL MEDICAL PROBLEM - General Chief Complaint: Skin Complaint Stated Complaint: HEART VALVE REPLACED YESTERDAY. NEEDS CLEANING Time Seen by Provider: 05/02/21 19:00 Source of Information: Reports: Patient, Family, RN History Limitations: Reports: No Limitations - History of Present Illness INITIAL COMMENTS - FREE TEXT/NARRATIVE: ED for dressing check. Hx heart valve repair discharged from hospital yesterday. 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 - Related Data Allergies Allergy/AdvReac Type Severity Reaction Status Date / Time acetaminophen [From Percocet] Allergy NAUSEA/VOMI Verified 05/02/21 18:50 TING codeine Allergy Nausea Verified 05/02/21 18:50 oxycodone [From Percocet] Allergy NAUSEA/VOMI Verified 05/02/21 18:50 TING propoxyphene Allergy NAUSEA/VOMI Verified 05/02/21 18:50 TING Home Meds: Home Meds Simvastatin [Zocor] 20 mg PO BEDTIME 03/17/14 [History] Aspirin [Ecotrin] 325 mg PO DAILY 03/31/17 [History] Famotidine 20 mg PO DAILY PRN 03/31/17 [History] Lisinopril 1.5 tab PO DAILY 03/31/17 [History] Metoprolol Tartrate 50 mg PO DAILY 03/31/17 [History] Simethicone [Gas Relief] 125 mg PO QID PRN 03/31/17 [History] Vit C/E/Zn/Coppr/Lutein/Zeaxan [Preservision Areds 2 Softgel] 1 cap PO BID 03/31/17 [History] Vitamin E (Dl,Tocopheryl Acet) [Vitamin E] 1,000 units PO BID 03/31/17 [History] Cholecalciferol (Vitamin D3) [Vitamin D3] 2 tab PO DAILY 05/05/17 [History] metFORMIN HCl [Metformin HCl] 500 mg PO DAILY 03/06/21 [History] Past Medical History HEENT History: Reports: Macular Degeneration Cardiovascular History: Reports: CAD, Heart Murmur, High Cholesterol, Stents, Other (See Below) Other Cardiovascular History: HYPERLIPIDEMIA Respiratory History: Reports: None Gastrointestinal History: Reports: Cholelithiasis, GERD, Other (See Below) Other Gastrointestinal History: LACTOSE INTOLERANCE Genitourinary History: Reports: None 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: Musculoskeletal History: Reports: None Neurological History: Reports: Migraines Psychiatric History: Reports: Anxiety, Depression Endocrine/Metabolic History: Reports: Hyperthyroidism, Multinodular Thyroid, Vitamin D Deficiency, Other (See Below) Other Endocrine/Metabolic History: MULTINODULAR GOITER Hematologic History: Reports: None Immunologic History: Reports: None Oncologic (Cancer) History: Reports: None Dermatologic History: Reports: None - Infectious Disease History Infectious Disease History: Reports: Chicken Pox, Mumps - Past Surgical History Head Surgeries/Procedures: Reports: None HEENT Surgical History: Reports: Tonsillectomy Cardiovascular Surgical History: Reports: Coronary Artery Stent Respiratory Surgical History: Reports: None GI Surgical History: Reports: Cholecystectomy, EGD Female Surgical History: Reports: Section Neurological Surgical History: Reports: None Musculoskeletal Surgical History: Reports: None Oncologic Surgical History: Reports: None Social & Family History - Family History Family Medical History: No Pertinent Family History Endocrine/Metabolic: Reports: Diabetes, type II Oncologic: Reports: Other (See Below) Other Oncologic Family History: unknown - Caffeine Use Caffeine Use: Reports: None - Living Situation & Occupation Living situation: Reports: Occupation: Employed ED ROS GENERAL - Review of Systems Review Of Systems: Comprehensive ROS is negative, except as noted in HPI. ED EXAM, SKIN/RASH Exam: See Below Exam Limited By: No Limitations General Appearance: Alert, No Apparent Distress, Anxious Eye Exam: Bilateral Eye: EOMI Ears: Hearing Grossly Normal Nose: Normal Inspection Throat/Mouth: Normal Inspection Head: Atraumatic, Normocephalic Neck: Normal Inspection Respiratory/Chest: No Respiratory Distress, Normal Breath Sounds Cardiovascular: Normal Peripheral Pulses Neurological: Alert, Oriented Psychiatric: Normal Affect Skin: Warm, Other (bilateral groin incision scant bloody drainage below egaderm, no redness no swelling) Course - Vital Signs Last Recorded V/S: Last Vital Signs Temp 97 F 05/02/21 18:45 Pulse 88 05/02/21 18:45 Resp 16 05/02/21 18:45 BP 129/60 05/02/21 18:45 Pulse Ox 98 05/02/21 18:45 Departure - Departure Time of Disposition: 19:05 Disposition: Home, Self-Care 01 Condition: Good Clinical Impression: Dressing change or removal, surgical wound - Discharge Information *PRESCRIPTION DRUG MONITORING PROGRAM REVIEWED*: No *COPY OF PRESCRIPTION DRUG MONITORING REPORT IN PATIENT SHEILA: No Instructions: Incision Care, Adult, [id number] Forms: ED Department Discharge Additional Instructions: Follow with primary care Wednesday or Wednesday keep dressing clean dry, pat dry following shower follow up sooner if redness swelling or large amount of blod under dressing home medications as prior Sepsis Event Note (ED) - Evaluation Sepsis Screening Result: No Definite Risk
== END 2021-05-02 19:18 | disposition home or self-care (01) ==
LOC: DL.ED 17:31
DX: Z48.01 Encounter for change or removal of surgical wound dressing (principal); I25.10 Atherosclerotic heart disease of native coronary artery without angina pectoris; E78.00 Pure hypercholesterolemia, unspecified; E03.9 Hypothyroidism, unspecified; Z95.5 Presence of coronary angioplasty implant and graft; Z79.82 Long term (current) use of aspirin; Z79.899 Other long term (current) drug therapy; Z79.84 Long term (current) use of oral hypoglycemic drugs; Z88.5 Allergy status to narcotic agent; Z88.6 Allergy status to analgesic agent; Z88.8 Allergy status to other drugs, medicaments and biological substances
CPT/HCPCS: 99282

== ENCOUNTER 2022-06-15 00:44 | Emergency (ER) | payer OTHER ==
[2022-06-15] MEDS ORDERED: Ondansetron 4 MG Tab.DIS PO ONE (00:45)
[2022-06-15 00:52] VITALS: BP 206/83; PULSE 86
[2022-06-15] MEDS ORDERED: diphenhydrAMINE 50 MG/ML SDV IVPUSH ONE (01:13)
[2022-06-15] MEDS ORDERED: Ondansetron 4 MG/2 ML SDV IVPUSH ONE (01:13)
[2022-06-15] MEDS ORDERED: Ketorolac 30 MG/ML SDV IVPUSH ONE (01:13)
[2022-06-15] MEDS ORDERED: Sodium Chloride 0.9% 500 ML IV SCH (01:15)
[2022-06-15] MEDS ORDERED: Ondansetron 4 MG Tab.DIS ONE (02:46)
[2022-06-15 02:49] LABS: ANION GAP 10.8 mEq/L (7-13)
== END 2022-06-15 03:15 | disposition home or self-care (01) ==
LOC: DL.ED 00:44
DX: G43.909 Migraine, unspecified, not intractable, without status migrainosus (principal); I25.10 Atherosclerotic heart disease of native coronary artery without angina pectoris; Z88.6 Allergy status to analgesic agent; Z88.5 Allergy status to narcotic agent; Z88.8 Allergy status to other drugs, medicaments and biological substances; Z79.899 Other long term (current) drug therapy; Z79.82 Long term (current) use of aspirin; Z90.49 Acquired absence of other specified parts of digestive tract
CPT/HCPCS: 36415; 80053; 81003; 85025; 96361; 96374; 96375; 99283; A9270; J1200; J1885; J2405; J7040

== ENCOUNTER 2023-01-03 17:23 | Emergency (ER) | payer MEDICARE, OTHER ==
[2023-01-03 17:31] VITALS: PULSE 78
[2023-01-03] MEDS ORDERED: hydrALAZINE 25 MG Tab PO ONE (17:44)
[2023-01-03 17:54] VITALS: BP 204/102
== END 2023-01-03 18:15 | disposition home or self-care (01) ==
LOC: DL.ED 17:23
DX: I10 Essential (primary) hypertension (principal); I25.10 Atherosclerotic heart disease of native coronary artery without angina pectoris; E78.00 Pure hypercholesterolemia, unspecified; E78.5 Hyperlipidemia, unspecified; E05.90 Thyrotoxicosis, unspecified without thyrotoxic crisis or storm; Z88.5 Allergy status to narcotic agent; Z88.8 Allergy status to other drugs, medicaments and biological substances; Z79.82 Long term (current) use of aspirin; Z79.899 Other long term (current) drug therapy; Z79.84 Long term (current) use of oral hypoglycemic drugs
CPT/HCPCS: 93005; 93010; 99283; 99284; A9270-GY

== ENCOUNTER 2024-12-01 11:58 | Observation (INO) | payer OTHER ==
[2024-12-01] MEDS: Ondansetron 4 MG/2 ML SDV IVPUSH ONE (12:55)
[2024-12-01] MEDS: Iopamidol 612 MG/ML 100 ML Bottle IVPUSH ONE (13:27)
[2024-12-01 13:40] LABS: BASOPHILS PERCENT AUTO 0.2 % (0.0-1.0); EOSINOPHILS PERCENT AUTO 0.2 % (1.0-3.0); HEMATOCRIT 40.3 % (37.0-47.0); HEMOGLOBIN 12.8 g/dL (12.0-16.0); MEAN CORPUSCULAR HEMOGLOBIN 27.9 pg (27.0-34.0); MEAN CORPUSCULAR HGB CONC 31.8 g/dL (33.0-35.0); MEAN CORPUSCULAR VOLUME 87.8 fL (80-100); MONOCYTES PERCENT AUTO 2.5 % (2-8); NEUTROPHILS PERCENT AUTO 95.1 % (42.2-75.2); PLATELET COUNT,PLT 328 10^3/uL (150-450); RED BLOOD CELL COUNT 4.59 10^6/uL (4.2-5.4); WHITE BLOOD CELL COUNT,WBC 19.4 10^3/uL (5.0-10.0)
[2024-12-01] MEDS: Sodium Chloride 0.9% 1,000 ML IV ONE ×2 (13:40→14:47)
[2024-12-01] MEDS: Famotidine 20 MG/2 ML SDV IVPUSH ONE (13:40)
[2024-12-01 13:41] LABS: APPEARANCE,URINE SLIGHTLY CLOUDY (CLEAR); BILIRUBIN,URINE NEGATIVE (NEGATIVE); COLOR,URINE DARK YELLOW (YELLOW); GLUCOSE,URINE NEGATIVE (NEGATIVE); KETONES,URINE NEGATIVE (NEGATIVE); LEUKOCYTE ESTERASE,URINE NEGATIVE (NEGATIVE); NITRITE,URINE NEGATIVE (NEGATIVE); OCCULT BLOOD,URINE NEGATIVE (NEGATIVE); PROTEIN,URINE 30 (NEGATIVE); UROBILINOGEN,URINE 0.2 mg/dL (0.2-1.0)
[2024-12-01 13:50] LABS: ALBUMIN 4.1 g/dL (3.4-5.0); ANION GAP 18.7 mEq/L (7-13); BILIRUBIN TOTAL 0.6 mg/dL (0.2-1.0); BUN/CREATININE RATIO 18.4 (No establ ref range); CREATININE 1.03 mg/dL (0.55-1.02); EST CRCL DRUG DOSING (CG) 40.2 mL/min; MAGNESIUM 1.9 mg/dL (1.8-2.4); POTASSIUM,K 4.7 mmol/L (3.5-5.1); PROTEIN TOTAL,TP 8.1 g/dL (6.4-8.2)
[2024-12-01 13:51] LABS: LACTIC ACID 1.7 mmol/L (0.4-2.0)
[2024-12-01 13:54] LABS: PROTHROMBIN TIME 10.1 SEC (9.0-12.0)
[2024-12-01] MEDS: Morphine 2 MG/ML SYRINGE IVPUSH ONE (13:57)
[2024-12-01 14:08] LABS: RBC,URINE 0-5 /HPF (0-5)
[2024-12-01 14:09] LABS: BACTERIA,URINE FEW /HPF (0-FEW/HPF); EPITHELIAL CELLS,URINE MANY /HPF (NOT SEEN); MUCUS,URINE MANY /LPF (NOT SEEN)
[2024-12-01] MEDS: Piperacillin/Tazobactam 4.5 GM in Sodium Chloride 0.9% 100 ML IV ONE (14:16)
[2024-12-01] MEDS: Bisacodyl 10 MG Supp RECTAL ONE (15:15)
[2024-12-01] MEDS: Acetaminophen 325 MG Tab PO ONE (15:18)
[2024-12-01] MEDS ORDERED: Docusate Sodium 100 MG Cap PO PRN (16:51)
[2024-12-01] MEDS ORDERED: Sennosides/Docusate Sodium 50-8.6 MG Tab PO PRN (16:51)
[2024-12-01] MEDS ORDERED: Acetaminophen/HYDROcodone 325-5 MG Tab PO PRN (16:51)
[2024-12-01] MEDS ORDERED: Bisacodyl 5 MG Tab PO PRN (16:51)
[2024-12-01] MEDS ORDERED: Bisacodyl 10 MG Supp RECTAL PRN (17:00)
[2024-12-01] MEDS ORDERED: Piperacillin/Tazobactam 3.375 GM in Sodium Chloride 0.9% 100 ML IV SCH (18:00)
[2024-12-01] MEDS: Sodium Chloride 0.9% 1,000 ML IV SCH (18:08)
[2024-12-01] MEDS: Piperacillin/Tazobactam 4.5 GM in Sodium Chloride 0.9% 100 ML IV SCH (18:11)
[2024-12-01] MEDS: atorvaSTATin 20 MG Tab PO SCH (20:34)
[2024-12-01] MEDS: hydrALAZINE 25 MG Tab PO SCH (20:34)
[2024-12-01] MEDS: Metoprolol Tartrate 25 MG Tab PO SCH (20:34)
[2024-12-01] MEDS: Melatonin 3 MG Tab PO PRN (20:35)
[2024-12-01] MEDS: Benzocaine/Docusate Sodium 20-283 MG/5 ML Enema RECTAL ONE (20:43)
[2024-12-02] MEDS: Acetaminophen 325 MG Tab PO PRN (05:56)
[2024-12-02 06:38] LABS: BASOPHILS PERCENT AUTO 0.3 % (0.0-1.0); EOSINOPHILS PERCENT AUTO 1.8 % (1.0-3.0); HEMATOCRIT 32.1 % (37.0-47.0); LYMPHOCYTES PERCENT AUTO 18.6 % (20.5-50.1); MEAN CORPUSCULAR HEMOGLOBIN 28.2 pg (27.0-34.0); MEAN CORPUSCULAR HGB CONC 31.2 g/dL (33.0-35.0); MEAN CORPUSCULAR VOLUME 90.4 fL (80-100); MONOCYTES PERCENT AUTO 8.5 % (2-8); NEUTROPHILS PERCENT AUTO 70.8 % (42.2-75.2); PLATELET COUNT,PLT 265 10^3/uL (150-450); RED BLOOD CELL COUNT 3.55 10^6/uL (4.2-5.4); WHITE BLOOD CELL COUNT,WBC 7.3 10^3/uL (5.0-10.0)
[2024-12-02 07:28] LABS: ANION GAP 13.4 mEq/L (7-13); CALCIUM 7.4 mg/dL (8.5-10.1); CREATININE 0.96 mg/dL (0.55-1.02); EST CRCL DRUG DOSING (CG) 43.13 mL/min; POTASSIUM,K 4.4 mmol/L (3.5-5.1); TSH ULTRASENSITIVE 1.42 uIU/mL (0.36-3.74)
[2024-12-02] MEDS: Piperacillin/Tazobactam 4.5 GM in Sodium Chloride 0.9% 100 ML IV SCH (09:05)
[2024-12-02] MEDS: Polyethylene Glycol 3350 Powder 17 GM Packet PO PRN (09:06)
[2024-12-02] MEDS: Omeprazole 20 MG Cap.CR PO SCH (09:06)
[2024-12-02] MEDS: Enoxaparin 40 MG/0.4 ML Syringe SUBCUT SCH (09:06)
[2024-12-02] MEDS: Lisinopril 20 MG Tab PO SCH (09:07)
[2024-12-02] MEDS: Levothyroxine 75 MCG Tab PO SCH (09:07)
[2024-12-02] MEDS: Aspirin 81 MG Tab.EC PO SCH (09:07)
[2024-12-02] MEDS: Ondansetron 4 MG/2 ML SDV IVPUSH PRN (10:05)
[2024-12-02] MEDS: oxyCODONE ER 10 MG TAB.ER PO ONE (10:05)
[2024-12-02] MEDS: Scopalamine 1mg/3day Transdermal Patch TOP ONE (10:41)
[2024-12-02] MEDS: SUMAtriptan 6 MG/0.5 ML SDV SUBCUT ONE (12:22)
[2024-12-02] MEDS: HYDROmorphone 0.5 MG/0.5 ML Syringe IVPUSH PRN (18:41)
[2024-12-02] MEDS: Saccharomyces Boulardii (Probiotic) 250 MG Cap PO SCH (20:22)
[2024-12-02] MEDS: oxyCODONE ER 10 MG TAB.ER PO SCH (20:22)
[2024-12-03 06:34] LABS: BASOPHILS PERCENT AUTO 0.3 % (0.0-1.0); EOSINOPHILS PERCENT AUTO 2.6 % (1.0-3.0); HEMATOCRIT 33.4 % (37.0-47.0); HEMOGLOBIN 10.2 g/dL (12.0-16.0); LYMPHOCYTES PERCENT AUTO 32.6 % (20.5-50.1); MEAN CORPUSCULAR HEMOGLOBIN 28.6 pg (27.0-34.0); MEAN CORPUSCULAR HGB CONC 30.5 g/dL (33.0-35.0); MEAN CORPUSCULAR VOLUME 93.6 fL (80-100); MONOCYTES PERCENT AUTO 10.8 % (2-8); NEUTROPHILS PERCENT AUTO 53.7 % (42.2-75.2); PLATELET COUNT,PLT 296 10^3/uL (150-450); RED BLOOD CELL COUNT 3.57 10^6/uL (4.2-5.4); WHITE BLOOD CELL COUNT,WBC 9.1 10^3/uL (5.0-10.0)
[2024-12-03 06:50] LABS: ALBUMIN 3.2 g/dL (3.4-5.0); ANION GAP 11.7 mEq/L (7-13); BILIRUBIN TOTAL 0.3 mg/dL (0.2-1.0); BUN/CREATININE RATIO 7.4 (No establ ref range); CALCIUM 7.6 mg/dL (8.5-10.1); CREATININE 1.22 mg/dL (0.55-1.02); EST CRCL DRUG DOSING (CG) 33.94 mL/min; MAGNESIUM 1.9 mg/dL (1.8-2.4); POTASSIUM,K 4.7 mmol/L (3.5-5.1); PROTEIN TOTAL,TP 6.4 g/dL (6.4-8.2)
[2024-12-03] MEDS: Midodrine 5 MG Tab PO ONE (10:44)
[2024-12-03] MEDS: Sodium Chloride 0.9% 1,000 ML IV SCH (10:50)
[2024-12-03] MEDS: LORazepam 0.5 MG Tab PO ONE (11:58)
[2024-12-03] MEDS ORDERED: Midodrine 5 MG Tab PO PRN (14:00)
[2024-12-03] MEDS: Acetaminophen/Butalbital/Caffeine 325-50-40 MG Tab PO PRN (19:01)
[2024-12-03] MEDS: LORazepam 0.5 MG Tab PO PRN (20:54)
[2024-12-04 06:38] LABS: BASOPHILS PERCENT AUTO 0.2 % (0.0-1.0); EOSINOPHILS PERCENT AUTO 3.7 % (1.0-3.0); HEMATOCRIT 29.5 % (37.0-47.0); HEMOGLOBIN 9.4 g/dL (12.0-16.0); LYMPHOCYTES PERCENT AUTO 27.6 % (20.5-50.1); MEAN CORPUSCULAR HEMOGLOBIN 29.3 pg (27.0-34.0); MEAN CORPUSCULAR HGB CONC 31.9 g/dL (33.0-35.0); MEAN CORPUSCULAR VOLUME 91.9 fL (80-100); MONOCYTES PERCENT AUTO 7.9 % (2-8); NEUTROPHILS PERCENT AUTO 60.6 % (42.2-75.2); PLATELET COUNT,PLT 277 10^3/uL (150-450); RED BLOOD CELL COUNT 3.21 10^6/uL (4.2-5.4); WHITE BLOOD CELL COUNT,WBC 8.9 10^3/uL (5.0-10.0)
[2024-12-04 07:20] LABS: ALBUMIN 2.9 g/dL (3.4-5.0); ANION GAP 12.1 mEq/L (7-13); BILIRUBIN TOTAL 0.3 mg/dL (0.2-1.0); CALCIUM 7.9 mg/dL (8.5-10.1); EST CRCL DRUG DOSING (CG) 41.4 mL/min; MAGNESIUM 1.9 mg/dL (1.8-2.4); POTASSIUM,K 4.1 mmol/L (3.5-5.1); PROTEIN TOTAL,TP 5.9 g/dL (6.4-8.2)
[2024-12-04 07:24] LABS: A/G RATIO 0.97
[2024-12-04] MEDS: Levothyroxine 75 MCG Tab PO ONE (09:09)
[2024-12-04] MEDS: Piperacillin/Tazobactam 4.5 GM in Sodium Chloride 0.9% 100 ML IV SCH (17:51)
[2024-12-04] MEDS: Acetaminophen 325 MG Tab PO PRN (20:26)
[2024-12-05] MEDS: Levothyroxine 75 MCG Tab PO SCH (05:49)
[2024-12-05 06:32] LABS: BASOPHILS PERCENT AUTO 0.3 % (0.0-1.0); EOSINOPHILS PERCENT AUTO 2.6 % (1.0-3.0); HEMATOCRIT 29.1 % (37.0-47.0); HEMOGLOBIN 9.1 g/dL (12.0-16.0); LYMPHOCYTES PERCENT AUTO 17.9 % (20.5-50.1); MEAN CORPUSCULAR HEMOGLOBIN 28.3 pg (27.0-34.0); MEAN CORPUSCULAR HGB CONC 31.3 g/dL (33.0-35.0); MEAN CORPUSCULAR VOLUME 90.4 fL (80-100); MONOCYTES PERCENT AUTO 8.3 % (2-8); NEUTROPHILS PERCENT AUTO 70.9 % (42.2-75.2); PLATELET COUNT,PLT 288 10^3/uL (150-450); RED BLOOD CELL COUNT 3.22 10^6/uL (4.2-5.4); WHITE BLOOD CELL COUNT,WBC 13.7 10^3/uL (5.0-10.0)
[2024-12-05 07:03] LABS: A/G RATIO 0.94; ALBUMIN 3.1 g/dL (3.4-5.0); ANION GAP 10.2 mEq/L (7-13); BILIRUBIN TOTAL 0.6 mg/dL (0.2-1.0); BUN/CREATININE RATIO 5.3 (No establ ref range); CALCIUM 8.1 mg/dL (8.5-10.1); CREATININE 0.94 mg/dL (0.55-1.02); EST CRCL DRUG DOSING (CG) 44.04 mL/min; MAGNESIUM 1.8 mg/dL (1.8-2.4); POTASSIUM,K 4.2 mmol/L (3.5-5.1); PROTEIN TOTAL,TP 6.4 g/dL (6.4-8.2)
[2024-12-05 09:47] VITALS: BP 148/58; PULSE 73
== END 2024-12-05 10:35 | disposition home or self-care (01) ==
LOC: DL.ED 11:58 → DL.MS 15:22
PROVIDERS: ADMIT Internal Medicine; ATTEND Internal Medicine
DX: D25.9 Leiomyoma of uterus, unspecified (principal); R93.89 Abnormal findings on diagnostic imaging of other specified body structures; R10.11 Right upper quadrant pain; R11.2 Nausea with vomiting, unspecified; I10 Essential (primary) hypertension; E78.5 Hyperlipidemia, unspecified; I25.10 Atherosclerotic heart disease of native coronary artery without angina pectoris; K21.9 Gastro-esophageal reflux disease without esophagitis; E03.9 Hypothyroidism, unspecified; D72.829 Elevated white blood cell count, unspecified; N17.9 Acute kidney failure, unspecified; K59.00 Constipation, unspecified; I95.9 Hypotension, unspecified; Z95.5 Presence of coronary angioplasty implant and graft; Z88.5 Allergy status to narcotic agent; Z88.8 Allergy status to other drugs, medicaments and biological substances; Z79.82 Long term (current) use of aspirin; Z79.899 Other long term (current) drug therapy; Z79.890 Hormone replacement therapy
CPT/HCPCS: 36415; 74177; 80048; 80053; 81001; 82947; 83605; 83690; 83735; 84443; 84484; 85025; 85610; 86140; 87040; 87086; 93005; 93010; 96361; 96365; 96366; 96372; 96375; 96376; 99284; 99285-25; A9270-GY; G0378; J1650; J2270; J2405; J2543; J3030; J3490; J7030; Q9967

== ENCOUNTER 2025-08-15 17:09 | Emergency (ER) | payer MEDICARE, OTHER ==
[2025-08-15 17:46] LABS: APPEARANCE,URINE CLEAR (CLEAR); GLUCOSE,URINE NEGATIVE (NEGATIVE); OCCULT BLOOD,URINE NEGATIVE (NEGATIVE)
[2025-08-15 17:52] LABS: BASOPHILS PERCENT AUTO 0.3 % (0.0-1.0); EOSINOPHILS PERCENT AUTO 2.0 % (1.0-3.0); LYMPHOCYTES PERCENT AUTO 31.3 % (20.5-50.1); MONOCYTES PERCENT AUTO 8.4 % (2-8); NEUTROPHILS PERCENT AUTO 58.0 % (42.2-75.2); PLATELET COUNT,PLT 345 10^3/uL (150-450); RED BLOOD CELL COUNT 4.39 10^6/uL (4.2-5.4); WHITE BLOOD CELL COUNT,WBC 9.7 10^3/uL (5.0-10.0)
[2025-08-15] MEDS: Ketorolac 30 MG/ML SDV IVPUSH ONE (17:56)
[2025-08-15 18:12] LABS: A/G RATIO 1.1; ALANINE AMINOTRANSFERASE,ALT 27.0 U/L (14-59); ASPARTATE AMNIOTRANSFERASE,AST 21.0 U/L (15-37); BILIRUBIN TOTAL 0.3 mg/dL (0.2-1.0); BLOOD UREA NITROGEN,BUN 11.0 mg/dL (7-18); CARBON DIOXIDE,CO2 28.0 mmol/L (21-32); CHLORIDE,CL 101.0 mmol/L (98-107); CREATININE 0.82 mg/dL (0.55-1.02); EST CRCL DRUG DOSING (CG) 49.77 mL/min; ESTIMATED GFR 76.0 mL/min (>=60); GLUCOSE RANDOM 108.0 mg/dL (70-99); POTASSIUM,K 4.5 mmol/L (3.5-5.1); PROTEIN TOTAL,TP 8.3 g/dL (6.4-8.2); SODIUM,NA 139.0 mmol/L (136-145)
[2025-08-15] MEDS: Iopamidol 612 MG/ML 100 ML Bottle IVPUSH ONE (18:30)
[2025-08-15 19:18] VITALS: BP 142/56; PULSE 64
== END 2025-08-15 19:17 | disposition home or self-care (01) ==
LOC: DL.ED 17:09
DX: S29.9XXA Unspecified injury of thorax, initial encounter (principal); I25.10 Atherosclerotic heart disease of native coronary artery without angina pectoris; E78.00 Pure hypercholesterolemia, unspecified; Z88.5 Allergy status to narcotic agent; Z88.8 Allergy status to other drugs, medicaments and biological substances; Z79.82 Long term (current) use of aspirin; Z79.899 Other long term (current) drug therapy; Z95.5 Presence of coronary angioplasty implant and graft; Z86.16 Personal history of COVID-19; Z90.49 Acquired absence of other specified parts of digestive tract; X50.0XXA Overexertion from strenuous movement or load, initial encounter; Y93.89 Activity, other specified
CPT/HCPCS: 36415; 74177; 80053; 81003; 85025; 96374; 99284; J1885; J7030; Q9967